=== PATIENT | female | born 1935 | race Caucasian/White ===

== ENCOUNTER 2017-11-21 15:44 | Emergency (ER) | payer OTHER, BC ==
--- OUTSIDE RECORDS SUMMARY | 2017-11-21 15:46 | XMS REPORT | Clinical Summary ---
:1935 Author Organization [facility] Address [address] [place] [address] Care Team Providers Name Role Phone Asked, No Pcp Primary Care Provider Unavailable Allergies No Known Allergies Current Medications Prescription Sig. Disp. Refills Start Date End Date Status aspirin (ECOTRIN) 81 MG Take 81 mg by Active enteric coated tablet mouth daily. atenolol (TENORMIN) 25 Take 25 mg by Active MG tablet mouth daily. atorvastatin (LIPITOR) Take 10 mg by Active 10 MG tablet mouth daily. ezetimibe (ZETIA) 10 mg Take 10 mg by Active tablet mouth daily. hydrochlorothiazide Take 25 mg by Active (HYDRODIURIL) 25 MG mouth daily. tablet roflumilast (DALIRESP) Take 500 mcg by Active 500 mcg tablet mouth daily. levothyroxine Take 75 mcg by Active (SYNTHROID, LEVOTHROID) mouth every 75 MCG tablet morning. losartan (COZAAR) 100 MG Take 100 mg by Active tablet mouth daily. magnesium oxide (MAG-OX) Take 400 mg by Active 400 mg tablet mouth 2 (two) times a day. ipratropium (ATROVENT) Take 500 mcg by Active 0.02 % nebulizer nebulization 2 solution (two) times a day. 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) 04/2015 Anemia of chronic disease 09/11/2015 Viral pneumonia 09/11/2015 COPD exacerbation (HCC) 07/25/2015 Bronchitis 07/25/2015 Social History Tobacco Use Types Packs/Day Years Used Date Former Smoker 0.5 40 Smokeless Tobacco: Never Used Comments: quit 30 years ago Alcohol Use Drinks/Week oz/Week Comments No Sex Assigned at Date Recorded Not on file Last Filed Vital Signs Not on file Plan of Treatment Health Maintenance Due Date Last Done Comments SHINGRIX VACCINE (#1) 1984 ZOSTER VACCINE 1994 PNEUMOCOCCAL POLYSACCHARIDE VACCINE AGE 65 AND OVER 04/28/1999 PNEUMOCOCCAL-13 04/28/1999 INFLUENZA VACCINE 09/08/2017 Results Not on fileafter 11/20/2016 Insurance Payer Benefit Plan / Group Subscriber ID Type Phone Address MEDICARE MEDICARE PART A AND B xxxxxxxxxx Medicare [facility] xxxxxxxxx HMO y [phone] [place] [id number]
[2017-11-21] MEDS ORDERED: MAGNE/ALUM HYDROXD 30 ML UCUP ONE (17:27)
[2017-11-21] MEDS ORDERED: LIDOCAINE VISCOUS 2% SOLN 15 ML UDC ONE (17:28)
[2017-11-21] MEDS ORDERED: FAMOTIDINE 20 MG/2 ML VIAL IV ONE (17:28)
[2017-11-21 17:37] LABS: Absolute Lymphocytes (CBC) 1.9 K/uL (0.7-4.9); Absolute Monocytes 0.7 K/uL (0.1-1.3); Absolute Neutrophil 6.5 K/uL (1.8-8.0); Basophils % 0.4 % (0-1.3); Eosinophils % 1.8 % (0-4.4); Hematocrit 30.4 % (36.0-45.0); MCH 29.9 pg (27.0-35.0); MPV 7.6 fL (7.6-11.3); Monocytes % 7.6 % (3.3-12.3); RBC Red Blood Cell Count 3.45 M/uL (3.86-4.86)
[2017-11-21 17:55] LABS: Albumin 3.2 g/dL (3.4-5.0); Bilirubin Direct 0.5 mg/dL (0-0.2); Bilirubin Total 0.9 mg/dL (0.2-1.0); Potassium 4.9 mmol/L (3.5-5.1); Protein, Total 7.1 g/dL (6.4-8.2)
--- NOTE | 2017-11-21 18:21 | RAD REPORT ---
EXAM DESCRIPTION: US - Abdomen Exam Limited - 11/21/2017 6:15 pm CLINICAL HISTORY: RUQ abd pain COMPARISON: <Comparisons> FINDINGS: The gallbladder demonstrates multiple gallstones. No pericholecystic fluid or gallbladder wall thickening. The common bile duct is mildly enlarged measuring 10 mm. The liver demonstrates no findings of intrahepatic biliary dilatation. IMPRESSION: Cholelithiasis. Prominent common bile duct measuring 10 mm. MRCP assessment may be of value.
[2017-11-21] MEDS ORDERED: METRONIDAZOLE 500mg IVPB 500 MG/100 ML BAG IV ONE (18:49)
[2017-11-21] MEDS ORDERED: NA CHLORIDE 0.9% 1,000 ML ONE (18:49)
[2017-11-21] MEDS ORDERED: CEFTRIAXONE/SWI 1gm 1 GM/10 ML SYR ONE (18:49)
--- NOTE | 2017-11-21 19:04 | ER ---
Nurse's Notes [facility] Name: Zohreh López Age: 82 yrs Sex: Female : 1935 Arrival Date: 11/21/2017 Time: 15:48 Bed 18 Private MD: Deejay Peter Diagnosis: Calculus of gallbladder and bile duct without cholecystitis Presentation: 11/21 15:53 Presenting complaint: Patient states: i feeling pressure type of pain on my chest for 2 hj weeks now and the pain moves to my shoulder blade; pain is 10/10; reports for productive cough, denies fever and chills; uses O2 at L 24/7 at home;. Transition of care: patient was not received from another setting of care. Onset of symptoms was November 21, 2017. Risk Assessment: Do you want to hurt yourself or someone else? Patient reports no desire to harm self or others. Initial Sepsis Screen: Does the patient meet any 2 criteria? No. Patient's initial sepsis screen is negative. Does the patient have a suspected source of infection? No. Patient's initial sepsis screen is negative. Care prior to arrival: None. 15:53 Method Of Arrival: Ambulatory 15:53 Acuity: KALEB 3 hj Triage Assessment: 16:00 General: Appears in no apparent distress. uncomfortable, Behavior is calm, cooperative, hj appropriate for age. Pain: Complains of pain in chest Pain radiates to back. Cardiovascular: Reports chest pain, Capillary refill < 3 seconds Patient's skin is warm and dry. Historical: - Allergies: 16:00 No Known Allergies; hj - Home Meds: 16:00 Zetia 10 mg Oral tab 1 tab once daily [Active]; ipratropium bromide 0.02 % inhalation hj soln 1.25 mL 3 times per day [Active]; atenolol 50 mg Oral tab 1 tab once daily [Active]; atorvastatin 40 mg oral tab 1 tab once daily [Active]; Daliresp 500 mcg oral tab 1 tab once daily [Active]; levothyroxine 75 mcg tab 1 tab once daily [Active]; magnesium oxide 400 mg Oral cap [Active]; Anoro Ellipta 62.5-25 mcg/actuation inhalation dsdv 1 puff once daily [Active]; latanoprost (bulk) 100 % miscellaneous oil [Active]; aspirin 81 mg Oral chew 1 tab once daily [Active]; oxybutynin chloride 10 mg Oral tr24 1 tab once daily [Active]; - PMHx: 16:00 COPD; hj - PSHx: 16:00 None; hj - Immunization history:: Adult Immunizations up to date. - Social history:: Smoking status: Patient/guardian denies using tobacco, Patient/guardian denies using alcohol, Patient/guardian denies using street drugs, The patient lives with family. - Ebola Screening: : Patient negative for fever greater than or equal to 101.5 degrees Fahrenheit, and additional compatible Ebola Virus Disease symptoms Patient denies exposure to infectious person Patient denies travel to an Ebola-affected area in the 21 days before illness onset. - Family history:: not pertinent. Screenin:00 Abuse screen: Denies threats or abuse. Denies injuries from another. Nutritional hj screening: No deficits noted. Tuberculosis screening: No symptoms or risk factors identified. Fall Risk None identified. Assessment: 16:01 Pain: Pain began 2 weeks ago;. hj 16:30 General: Appears in no apparent distress. comfortable, Behavior is calm, cooperative, aj appropriate for age. Pain: Complains of pain in epigastric area and right upper quadrant. Neuro: Level of Consciousness is awake, alert, obeys commands, Oriented to person, place, time, situation, Appropriate for age. Respiratory: Airway is patent Respiratory effort is even, unlabored, Respiratory pattern is regular, symmetrical. GI: Abdomen is non-distended, obese, Abdomen is tender to palpation in epigastric area Reports epigastric pain, nausea. Derm: Skin is intact, is healthy with good turgor, Skin is pink, warm \T\ dry. normal. 19:30 Reassessment: Patient appears in no apparent distress at this time. No changes from jd3 previously documented assessment. Patient and/or family updated on plan of care and expected duration. Pain level reassessed. Patient is alert, oriented x 3, equal unlabored respirations, skin warm/dry/pink. 20:28 Reassessment: Patient appears in no apparent distress at this time. No changes from jd3 previously documented assessment. Patient and/or family updated on plan of care and expected duration. Pain level reassessed. Patient is alert, oriented x 3, equal unlabored respirations, skin warm/dry/pink. report given to Mariposa BERRY at [facility]. 21:22 Reassessment: Patient appears in no apparent distress at this time. No changes from jd3 previously documented assessment. Patient and/or family updated on plan of care and expected duration. Pain level reassessed. Patient is alert, oriented x 3, equal unlabored respirations, skin warm/dry/pink. Vital Signs: 16:01 BP 131 / 46; Pulse 60; Resp 18; Temp 98.2(O); Pulse Ox 96% on 2 lpm NC; Weight 83.91 hj kg; Height 5 ft. 3 in. (160.02 cm); Pain 10/10; 16:30 BP 150 / 53; Pulse 86; Resp 17; Pulse Ox 98% on 2 lpm NC; aj 19:31 BP 143 / 61; Pulse 73; Resp 16 S; Pulse Ox 98% on R/A; jd3 20:34 BP 134 / 59; Pulse 66; Resp 16 S; Pulse Ox 98% on R/A; jd3 16:01 Body Mass Index 32.77 (83.91 kg, 160.02 cm) ED Course: 15:48 Patient arrived in ED. mr 15:50 Deejay Peter MD is Private Physician. mr 15:56 Triage completed. hj 16:00 Arm band placed on left wrist. hj 16:01 Patient has correct armband on for positive identification. Placed in gown. Bed in low hj position. Call light in reach. Side rails up X 1. Adult w/ patient. gambling monitor on. Pulse ox on. NIBP on. 16:01 Patient maintains SpO2 saturation greater than 95% on room air. hj 16:10 Carol Adames, KRISTI is Primary Nurse. aj 16:17 Nathaniel Olivarez MD is Attending Physician. ma2 16:50 Inserted saline lock: 20 gauge in right forearm, using aseptic technique. Blood aj collected. 18:02 EKG done, by ED staff, reviewed by Nathaniel Olivarez MD. mh5 18:15 US Abdomen Limited In Process Unspecified. EDMS 19:30 Primary Nurse role handed off by Carol Adames, KRISTI jd3 19:30 Christian Farrell RN is Primary Nurse. jd3 21:22 No provider procedures requiring assistance completed. Patient transferred, IV remains jd3 in place. Administered Medications: 17:25 Drug: Pepcid 20 mg Route: IVP; Site: right forearm; aj 19:07 Follow up: Response: No adverse reaction aj 17:25 Drug: GI Cocktail without - (Maalox Suspension 30 ml, Lidocaine Liquid 2 % 15 aj ml) Route: PO; 19:07 Follow up: Response: Pain is decreased aj 19: Drug: Flagyl 500 mg Volume: 100 ml; Route: IVPB; Rate: 200 ml/hr; Infused Over: 30 jd3 mins; Site: right antecubital; 20:35 Follow up: Response: No adverse reaction; IV Status: Completed infusion jd3 19:19 Drug: NS 0.9% 1000 ml Route: IV; Rate: 1 bolus; Site: right antecubital; jd3 20:35 Follow up: Response: No adverse reaction; IV Status: Completed infusion; IV Intake: jd3 1000ml 19:20 Drug: Rocephin 1 grams Route: IV; Rate: calculated rate; Site: right antecubital; jd3 20:35 Follow up: Response: No adverse reaction; IV Status: Completed infusion jd3 Intake: 20:35 IV: 1000ml; Total: 1000ml. jd3 Outcome: 19:03 ER care complete, transfer ordered by MD. flood2 21:22 Transferred by ground EMS to [facility], Transfer form completed. jd3 X-rays sent w/ patient. Note: Report given to [facility] 21:22 Condition: stable 21:22 Instructed on the need for transfer, Demonstrated understanding of instructions. 21:23 Patient left the ED. jd3 Signatures: Dispatcher [employer] EDMS Carol Adames, Robyn Oliveros RN, Henry, RN RN hj Martinez, Maria Christian oRy RN RN jd3 Alzahri, Mohammad, MD MD ma2 Corrections: (The following items were deleted from the chart) 16:05 16:01 Pulse 60bpm; Resp 18bpm; Pulse Ox 96% 2 lpm Nasal Cannula; Temp 98.2F Oral; 83.91 hj kg; Height 5 ft. 3 in.; BMI: 32.7; Pain 10/10; hj
--- NOTE | 2017-11-21 19:04 | EDPHYS ---
Physician Documentation [facility] Name: Zohreh López Age: 82 yrs Sex: Female : 1935 Arrival Date: 11/21/2017 Time: 15:48 Bed 18 Private MD: Deejay Peter ED Physician Nathaniel Olivarez HPI: 11/21 16:44 This 82 yrs old Female presents to ER via Ambulatory with complaints of Chest ma2 Pain, Shoulder Pain. 16:44 The patient or guardian reports chest pain that is located primarily in the epigastric ma2 area. Onset: suddenly, today, 3 hour(s) ago. The pain radiates to RUQ. Associated signs and symptoms: Pertinent negatives: abdominal pain, cough, diaphoresis, headache, lower extremity swelling, lightheadedness, shortness of breath, syncope. Duration: The patient or guardian reports multiple episodes, that have now resolved, the episodes last approximately 20 minute(s). Modifying factors: The symptoms are alleviated by the symptoms are aggravated by eating. Severity of pain: At its worst the pain was moderate in the emergency department the pain is unchanged. Historical: - Allergies: 16:00 No Known Allergies; hj - Home Meds: 16:00 Zetia 10 mg Oral tab 1 tab once daily [Active]; ipratropium bromide 0.02 % inhalation hj soln 1.25 mL 3 times per day [Active]; atenolol 50 mg Oral tab 1 tab once daily [Active]; atorvastatin 40 mg oral tab 1 tab once daily [Active]; Daliresp 500 mcg oral tab 1 tab once daily [Active]; levothyroxine 75 mcg tab 1 tab once daily [Active]; magnesium oxide 400 mg Oral cap [Active]; Anoro Ellipta 62.5-25 mcg/actuation inhalation dsdv 1 puff once daily [Active]; latanoprost (bulk) 100 % miscellaneous oil [Active]; aspirin 81 mg Oral chew 1 tab once daily [Active]; oxybutynin chloride 10 mg Oral tr24 1 tab once daily [Active]; - PMHx: 16:00 COPD; hj - PSHx: 16:00 None; hj - Immunization history:: Adult Immunizations up to date. - Social history:: Smoking status: Patient/guardian denies using tobacco, Patient/guardian denies using alcohol, Patient/guardian denies using street drugs, The patient lives with family. - Ebola Screening: : Patient negative for fever greater than or equal to 101.5 degrees Fahrenheit, and additional compatible Ebola Virus Disease symptoms Patient denies exposure to infectious person Patient denies travel to an Ebola-affected area in the 21 days before illness onset. - Family history:: not pertinent. ROS: 16:44 Constitutional: Negative for fever, chills, and weight loss, Respiratory: Negative for ma2 shortness of breath, cough, wheezing, and pleuritic chest pain. 16:44 Abdomen/GI: Positive for abdominal pain, Negative for nausea and vomiting, diarrhea, abdominal cramps, dysphagia, rectal bleeding, bowel incontinence. 16:44 All other systems are negative. Exam: 16:44 Constitutional: This is a well developed, well nourished patient who is awake, alert, ma2 and in no acute distress. Chest/axilla: Normal chest wall appearance and motion. Nontender with no deformity. No lesions are appreciated. Cardiovascular: Regular rate and rhythm with a normal S1 and S2. No gallops, murmurs, or rubs. Normal PMI, no JVD. No pulse deficits. Respiratory: Lungs have equal breath sounds bilaterally, clear to auscultation and percussion. No rales, rhonchi or wheezes noted. No increased work of breathing, no retractions or nasal flaring. Back: No spinal tenderness. No costovertebral tenderness. Full range of motion. MS/ Extremity: Pulses equal, no cyanosis. Neurovascular intact. Full, normal range of motion. Neuro: Awake and alert, GCS 15, oriented to person, place, time, and situation. Cranial nerves II-XII grossly intact. Motor strength 5/5 in all extremities. Sensory grossly intact. Cerebellar exam normal. Normal gait. 16:44 Abdomen/GI: Inspection: abdomen appears normal, Palpation: moderate abdominal tenderness, in the right upper quadrant, Liver: no appreciated palpable abnormalities. Vital Signs: 16:01 BP 131 / 46; Pulse 60; Resp 18; Temp 98.2(O); Pulse Ox 96% on 2 lpm NC; Weight 83.91 hj kg; Height 5 ft. 3 in. (160.02 cm); Pain 10/10; 16:30 BP 150 / 53; Pulse 86; Resp 17; Pulse Ox 98% on 2 lpm NC; aj 19:31 BP 143 / 61; Pulse 73; Resp 16 S; Pulse Ox 98% on R/A; jd3 20:34 BP 134 / 59; Pulse 66; Resp 16 S; Pulse Ox 98% on R/A; jd3 16:01 Body Mass Index 32.77 (83.91 kg, 160.02 cm) hj MDM: 16:18 Patient medically screened. ma2 16:44 Differential diagnosis: anxiety, chest wall pain, cholecystitis, Cholelithiasis ma2 costochondritis. 18:59 Data reviewed: vital signs, nurses notes, EMS record, radiologic studies, ultrasound. ma2 Counseling: I had a detailed discussion with the patient and/or guardian regarding: the historical points, exam findings, and any diagnostic results supporting the discharge/admit diagnosis, the presence of at least one elevated blood pressure reading (>120/80) during this emergency department visit, the need to transfer to another facility. ED course: discussed with Dr. Sánchez.. he recommend tranasfer given elevated LFT and CBD of 10 mm, no GI available today will initiate transfer . 11/21 16:44 Order name: Basic Metabolic Panel [facility] 11/21 16:44 Order name: CBC with Diff [facility] 11/21 16:44 Order name: Creatinine for Radiology; Complete Time: 17:59 ma2 11/21 16:44 Order name: Hepatic Function; Complete Time: 18:26 ma2 11/21 16:44 Order name: Lipase; Complete Time: 18:26 vt2 11/21 16:44 Order name: Basic Metabolic Panel; Complete Time: 18:26 EDMS 11/21 16:44 Order name: US Abdomen Limited; Complete Time: 18:26 vt2 11/21 16:44 Order name: CBC with Automated Diff; Complete Time: 17:59 EDMS 11/21 16:48 Order name: Troponin I; Complete Time: 18:26 ma2 11/21 17:22 Order name: Urine Dipstick--Ancillary (enter results) 11/21 16:44 Order name: IV Saline Lock; Complete Time: 17:39 ma2 11/21 16:44 Order name: Labs collected and sent; Complete Time: 17:39 ma2 11/21 16:48 Order name: EKG; Complete Time: 16:48 ma2 11/21 16:48 Order name: EKG - Nurse/Tech; Complete Time: 17:48 ma2 11/21 18:35 Order name: NPO; Complete Time: 19:20 ma2 Administered Medications: 17:25 Drug: Pepcid 20 mg Route: IVP; Site: right forearm; aj 19:07 Follow up: Response: No adverse reaction aj 17:25 Drug: GI Cocktail without - (Maalox Suspension 30 ml, Lidocaine Liquid 2 % 15 aj ml) Route: PO; 19:07 Follow up: Response: Pain is decreased aj 19:19 Drug: Flagyl 500 mg Volume: 100 ml; Route: IVPB; Rate: 200 ml/hr; Infused Over: 30 jd3 mins; Site: right antecubital; 20:35 Follow up: Response: No adverse reaction; IV Status: Completed infusion jd3 19:19 Drug: NS 0.9% 1000 ml Route: IV; Rate: 1 bolus; Site: right antecubital; jd3 20:35 Follow up: Response: No adverse reaction; IV Status: Completed infusion; IV Intake: jd3 1000ml 19:20 Drug: Rocephin 1 grams Route: IV; Rate: calculated rate; Site: right antecubital; jd3 20:35 Follow up: Response: No adverse reaction; IV Status: Completed infusion jd3 Disposition: 11/21/17 19:03 Transfer ordered to [facility]. Diagnosis is Calculus of gallbladder and bile duct without cholecystitis. - Reason for transfer: Higher level of care. - Accepting physician is . - Condition is Stable. - Problem is new. - Symptoms are unchanged. Signatures: Dispatcher [employer] Carol Ponce RN RN aj Joaquin, Henry, RN RN hj Davies, Jonathon, RN RN jd3 Alzahri, Mohammad, MD MD ma2 Corrections: (The following items were deleted from the chart) 19:04 19:03 11/21/2017 19:03 Transfer ordered to [facility]. Diagnosis is ma2 Calculus of gallbladder and bile duct without cholecystitis. Reason for transfer: Higher level of care. Accepting physician is GI. Condition is Stable. Problem is new. Symptoms are unchanged. ma2 21:23 19:04 11/21/2017 19:03 Transfer ordered to [facility]. Diagnosis is jd3 Calculus of gallbladder and bile duct without cholecystitis. Reason for transfer: Higher level of care. Accepting physician is . Condition is Stable. Problem is new. Symptoms are unchanged. ma2
[2017-11-21 22:09] LABS: Urine Blood NEGATIVE (NEG); Urine Glucose NEGATIVE (NEG); Urine Protein 2+ (NEG)
--- NOTE | 2017-11-22 10:05 | EKG ---
Test Date: 2017-11-21 Test Time: 17:46:25 Upset Operator: MANDI MEASUREMENT RESULTS: Intervals: Rate: 63 MT: 188 QRSD: 76 QT: 382 QTc: 390 Weed: P: 67 MT: 188 QRS: 64 T: 64 INTERPRETIVE STATEMENTS: Normal sinus rhythm Nonspecific T wave abnormality Abnormal ECG Compared to ECG 09/07/2015 10:27:08 No significant changes Electronically Signed On 11-22-17 10:03:50 CDT by Pradeep Che
[2017-11-23 14:08] VITALS: BP 134/59; TEMP 98.2; O2SAT 98
== END 2017-11-21 21:23 | disposition short-term general hospital (02) ==
LOC: ER 15:44
DX: K80.70 Calculus of gallbladder and bile duct without cholecystitis without obstruction (principal); J44.9 Chronic obstructive pulmonary disease, unspecified; Z79.82 Long term (current) use of aspirin
CPT/HCPCS: 36415; 76705; 80048; 80076; 81003; 83690; 84484; 85025; 93005; 96365; 96368; 96375; 99285; J0696; J7030

== ENCOUNTER 2018-01-06 09:48 | Inpatient (IN) | payer OTHER, BC ==
--- OUTSIDE RECORDS SUMMARY | 2018-01-06 09:52 | XMS REPORT | Clinical Summary ---
:1935 Author Organization [facility] Address [address] [place] [address] Care Team Providers Name Role Phone Asked, No Pcp Primary Care Provider Unavailable Allergies No Known Allergies Medications Medication Sig Dispensed Refills Start Date End Date Status aspirin (ECOTRIN) 81 MG Take 81 mg by 0 Active enteric coated tablet mouth daily. atenolol (TENORMIN) 25 Take 25 mg by 0 Active MG tablet mouth daily. atorvastatin (LIPITOR) Take 10 mg by 0 Active 10 MG tablet mouth daily. ezetimibe (ZETIA) 10 mg Take 10 mg by 0 Active tablet mouth daily. hydrochlorothiazide Take 25 mg by 0 Active (HYDRODIURIL) 25 MG mouth daily. tablet roflumilast (DALIRESP) Take 500 mcg by 0 Active 500 mcg tablet mouth daily. levothyroxine Take 75 mcg by 0 Active (SYNTHROID, LEVOTHROID) mouth every 75 MCG tablet morning. losartan (COZAAR) 100 MG Take 100 mg by 0 Active tablet mouth daily. magnesium oxide (MAG-OX) Take 400 mg by 0 Active 400 mg tablet mouth 2 (two) times a day. ipratropium (ATROVENT) Take 500 mcg by 0 Active 0.02 % nebulizer nebulization 2 solution (two) times a day. 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 Last Filed Vital Signs Not on file Plan of Treatment Health Maintenance Due Date Last Done Comments SHINGRIX VACCINE (1 of 2) 1984 ZOSTER VACCINE 1994 PNEUMOCOCCAL POLYSACCHARIDE VACCINE AGE 65 AND OVER 04/28/1999 PNEUMOCOCCAL-13 04/28/1999 INFLUENZA VACCINE 09/08/2017 Results Not on fileafter 01/05/2017 Insurance Payer Benefit Plan / Group Subscriber ID Type Phone Address MEDICARE MEDICARE PART A AND B xxxxxxxxxx Medicare [place], [place] [employer] xxxxxxxxx HMO (Home) [place] [address] Advance Directives Patient has advance care planning documents, and code status on file. For more information, please contact:[place] [address] Code Status Date Activated Date Inactivated Comments Full Code 09/11/2015 1:03 AM 09/15/2015 7:57 PM Code Status decision reached by: Patient
--- OUTSIDE RECORDS SUMMARY | 2018-01-06 09:52 | XMS REPORT | Clinical Summary ---
:[address] [facility] Address [address] [place] [address] Care Team Providers Name Role Phone Deejay Peter Primary Care Provider Allergies No Known Allergies Medications Medication Sig Dispensed Refills Start Date End Date Status ezetimibe (ZETIA) 10 Take 10 mg by 0 Active mg tablet mouth daily. ipratropium Take 500 mcg by 0 Active (ATROVENT) 0.02 % nebulization 2 nebulizer solution (two) times daily as needed for Wheezing. atenolol (TENORMIN) Take 50 mg by 0 Active 50 MG tablet mouth daily. atorvastatin Take 40 mg by 0 Active (LIPITOR) 40 MG mouth daily. tablet roflumilast Take 500 mcg by 0 Active (DALIRESP) 500 mcg mouth daily. Tab tablet levothyroxine Take 75 mcg by 0 Active (SYNTHROID, mouth Every LEVOTHROID) 75 MCG morning on an tablet empty stomach. magnesium oxide Take 400 mg by 0 Active (MAG-OX) 400 mg mouth 2 (two) tablet times daily. umeclidinium-vilante Inhale 62.5 mcg by 0 Active rol (ANORO ELLIPTA) mouth via inhaler 62.5-25 daily. mcg/actuation DsDv latanoprost Place 1 drop into 0 Active (XALATAN) 0.005 % both eyes nightly. ophthalmic solution aspirin 81 MG EC Take 81 mg by 0 Active tablet mouth daily. amLODIPine (NORVASC) Take 5 mg by mouth 0 Active 5 MG tablet daily. oxybutynin Take 10 mg by 0 Active (DITROPAN-XL) 10 MG mouth daily. 24 hr tablet polyethylene glycol Take 17 g by mouth 255 g 0 11/25/2017 Active (GLYCOLAX) 17 daily as needed gram/dose powder (constipation). HYDROcodone-acetamin Take 1 tablet by 30 tablet 0 11/25/2017 12/05/2017 ophen (NORCO 5-325) mouth every 4 5-325 mg per tablet (four) hours as needed for up to 10 days. 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 11/26/2017 Choledocholithiasis 11/25/2017 Chronic diastolic HF (heart failure) 11/24/2017 Calculus of gallbladder with biliary obstruction but without cholecystitis Calculus of gallbladder without cholecystitis 11/21/2017 COPD (chronic obstructive pulmonary disease) 11/21/2017 Essential hypertension 11/21/2017 Elevated transaminase level 11/21/2017 Epigastric pain 11/21/2017 Elevated liver function tests 11/21/2017 Encounters Date Type Specialty Care Team Description 11/24/2017 Anesthesia Event Hugh Rodarte MD 11/24/2017 Surgery Yumi Shah LAPAROSCOPY,NUVIA Dunlap MD TECTOMY 11/23/2017 Surgery Gastroenterology Juan Antonio, ERCP,PAPILLOTOMY Lyubov Rutledge MD 11/23/2017 Anesthesia Event Gastroenterology Yoshi Mccrary MD 11/21/2017 [place] [facility] Calculus of gallbladder with biliary obstruction but without cholecystitis (Primary Dx); - Encounter Medicine Madhu Simple chronic bronchitis (HCC); 11/25/2017 MD Katharina Elevated liver function tests; Chester Hernandez Epigastric pain; MD Michael Essential hypertension; Elevated transaminase level; Chronic diastolic heart failure (HCC); Choledocholithiasis; Other emphysema (HCC); 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 Last Filed Vital Signs Vital Sign Reading Time Taken Blood Pressure 141/65 11/25/2017 8:08 AM CDT Pulse 72 11/25/2017 8:08 AM CDT Temperature 36.6 C (97.8 F) 11/25/2017 8:08 AM CDT Respiratory Rate 17 11/25/2017 8:08 AM CDT Oxygen Saturation 94% 11/25/2017 8:08 AM CDT Inhaled Oxygen Concentration - - Weight - - Height - - Body Mass Index - - Plan of Treatment Not on file Procedures Procedure Name Priority Date/Time Associated Diagnosis Comments REPORT OF PROCEDURE - 11/26/2017 1:21 ENDOSCOPY SCAN PM CDT RHYTHM STRIP - SCAN 11/26/2017 1:21 PM CDT TRANSFUSION SERVICE 11/25/2017 5:41 REPORT - SCAN PM CDT CBC W/PLT COUNT & AUTO Routine 11/25/2017 5:14 Results for this DIFFERENTIAL AM CDT procedure are in the results section. PHOSPHORUS Routine 11/25/2017 5:14 Results for this AM CDT procedure are in the results section. MAGNESIUM Routine 11/25/2017 5:14 Results for this AM CDT procedure are in the results section. HEPATIC FUNCTION PANEL Routine 11/25/2017 5:14 Results for this AM CDT procedure are in the results section. CBC W/PLT COUNT & AUTO Routine 11/25/2017 5:14 Results for this DIFFERENTIAL AM CDT procedure are in the results section. BASIC METABOLIC PANEL Routine 11/25/2017 5:14 Results for this (7) AM CDT procedure are in the results section. TISSUE EXAM AP Routine 11/24/2017 5:55 Results for this PM CDT procedure are in the results section. ECHOCARDIOGRAM REPORT 11/24/2017 11:50 - SCAN AM CDT LAPAROSCOPY,CHOLECYSTE 11/24/2017 11:20 Calculus of CTOMY AM CDT gallbladder without cholecystitis without obstruction Case Notes 1.5 HRS CBC W/PLT COUNT & AUTO Routine 11/24/2017 6:19 AM Results for this DIFFERENTIAL CDT procedure are in the results section. TYPE AND SCREEN, Routine 11/24/2017 6:19 AM Results for this AUTOMATED CDT procedure are in the results section. CBC W/PLT COUNT & AUTO Routine 11/24/2017 6:19 AM Results for this DIFFERENTIAL CDT procedure are in the results section. PROTHROMBIN TIME/INR Routine 11/24/2017 6:19 AM Results for this CDT procedure are in the results section. HEPATIC FUNCTION PANEL Routine 11/24/2017 6:19 AM Results for this CDT procedure are in the results section. MAGNESIUM Routine 11/24/2017 6:19 AM Results for this CDT procedure are in the results section. BASIC METABOLIC PANEL Routine 11/24/2017 6:19 AM Results for this (7) CDT procedure are in the results section. 2D ECHO W/ DOPPLER Routine 11/23/2017 7:41 PM Results for this (CW/PW/COLOR) CDT procedure are in the results section. REPORT OF PROCEDURE - 11/23/2017 5:25 PM ENDOSCOPY URL CDT FL ERCP Routine 11/23/2017 5:07 PM Results for this CDT procedure are in the results section. ERCP,BALLOON SWEEPING 11/23/2017 4:00 PM Gall stones, CDT common bile duct Pancreatic cyst Special Needs EUS AND ERCP W/ FLUORO AND ANESLINEAR SCOPE ERCP,LITHOTRIPSY 11/23/2017 4:00 PM CDT Gall stones, common bile duct Pancreatic cyst Special Needs EUS AND ERCP W/ FLUORO AND ANESLINEAR SCOPE ERCP,VISUALIZATION 11/23/2017 4:00 PM Gall stones, common bile CHOLANGIOSCOPY CDT duct Pancreatic cyst Special Needs EUS AND ERCP W/ FLUORO AND ANESLINEAR SCOPE PROCEDURE W/ C-ARM 11/23/2017 4:00 PM CDT Gall stones, common bile duct Pancreatic cyst Special Needs EUS AND ERCP W/ FLUORO AND ANESLINEAR SCOPE ERCP,PAPILLOTOMY 11/23/2017 4:00 PM CDT Gall stones, common bile duct Pancreatic cyst Special Needs EUS AND ERCP W/ FLUORO AND ANESLINEAR SCOPE CBC W/PLT COUNT & AUTO Routine 11/23/2017 4:56 AM CDT Results for this DIFFERENTIAL procedure are in the results section. APTT Routine 11/23/2017 4:56 AM CDT CBC W/PLT COUNT & AUTO Routine 11/23/2017 4:56 AM CDT Results for this DIFFERENTIAL procedure are in the results section. PROTHROMBIN TIME/INR Routine 11/23/2017 4:56 AM CDT HEPATIC FUNCTION PANEL Routine 11/23/2017 4:56 AM CDT MAGNESIUM Routine 11/23/2017 4:56 AM CDT BASIC METABOLIC PANEL (7) Routine 11/23/2017 4:56 AM CDT XR CHEST 2 VIEWS Routine 11/22/2017 9:25 AM CDT MR ABDOMEN WO CONTRAST MRCP STAT 11/22/2017 8:35 AM CDT CBC W/PLT COUNT & AUTO Routine 11/22/2017 4:31 AM CDT Results for this DIFFERENTIAL procedure are in the results section. HEPATITIS PANEL, ACUTE Routine 11/22/2017 4:31 AM CDT CBC W/PLT COUNT & AUTO Routine 11/22/2017 4:31 AM CDT Results for this DIFFERENTIAL procedure are in the results section. PROTHROMBIN TIME/INR Routine 11/22/2017 4:31 AM CDT HEPATIC FUNCTION PANEL Routine 11/22/2017 4:31 AM CDT MAGNESIUM Routine 11/22/2017 4:31 AM CDT BASIC METABOLIC PANEL (7) Routine 11/22/2017 4:31 AM CDT BLOOD CULTURE Routine 11/22/2017 4:30 AM CDT after 01/05/2017 Results EKG-SCANNED (11/26/2017 1:21 PM CDT) Narrative Performed At RHYTHM STRIP - SCAN (11/26/2017 1:21 PM CDT) Narrative Performed At TRANSFUSION SERVICE REPORT - SCAN (11/25/2017 5:41 PM CDT) Narrative Performed At CBC with platelet count + automated diff (11/25/2017 5:14 AM CDT)Only the most recent of4 resultswithin the time period is included. WBC 11.5 (H) 3.5 - 10.5 K/L [facility] RBC 3.23 (L) 3.93 - 5.22 M/L [facility] Hemoglobin 9.4 (L) 11.2 - 15.7 GM/DL [facility] Hematocrit 31.5 (L) 34.1 - 44.9 % [facility] MCV 97.5 (H) 79.4 - 94.[address] [facility] MCH 29.1 25.6 - 32.[address] [facility] MCHC 29.8 (L) 32.2 - 35.5 GM/DL [facility] RDW 13.3 11.7 - 14.4 % [facility] Platelets 208 150 - 450 K/CU MM [facility] MPV 9.4 9.4 - 12.[address] [facility] nRBC 0 0 - 0 /[address] [facility] % Neutros 88 % [facility] % Lymphs 8 % [facility] % Monos 3 % [facility] % Eos 0 % [facility] % Baso 0 % [facility] # Neutros 10.06 (H) 1.56 - 6.13 K/L [facility] # Lymphs 0.92 (L) 1.18 - 3.74 K/L [facility] # Monos 0.32 0.24 - 0.36 K/L [facility] # Eos 0.00 (L) 0.04 - 0.36 K/L [facility] # Baso 0.02 0.01 - 0.08 K/L [facility] Immature 1 0 - 1 % [facility] Granulocytes-[facility] Specimen Blood - Arm, Right Performing Organization Address City/State/Zipcode Phone Number [facility] [address] [place] [address] CENTER Phosphorus (11/25/2017 5:14 AM CDT) Phosphorus 4.1 2.3 - 4.7 mg/dL [facility] Specimen Blood - Arm, Right Performing Organization Address [facility] Phone Number [address] [address] [phone] [place] Magnesium (11/25/2017 5:14 AM CDT)Only the most recent of4 resultswithin the time period is included. Magnesium 2.1 1.6 - 2.6 mg/dL [facility] Specimen Blood - Arm, Right Performing Organization Address [facility] Phone Number [address] [address] [place] Hepatic function panel (11/25/2017 5:14 AM CDT)Only the most recent of4 resultswithin the time period is included. Protein, Total 6.3 6.0 - 8.3 gm/dL [facility] Albumin 3.4 (L) 3.5 - 5.0 g/dL [facility] Total Bilirubin 0.4 0.2 - 1.2 mg/dL [facility] Bilirubin, Direct 0.2 0.1 - 0.5 mg/dL [facility] Alkaline Phosphatase 230 (H) 40 - 150 U/L [facility] AST 84 (H) 5 - 34 U/L [facility] ALT 216 (H) 6 - 55 U/L [facility] Specimen Blood - Arm, Right Performing Organization Address [facility] Phone Number [address] [address] [place] Basic Metabolic Panel (11/25/2017 5:14 AM CDT)Only the most recent of4 resultswithin the time period is included. Sodium 139 136 - 145 meq/L [facility] Potassium 5.6 (H) 3.5 - 5.1 meq/L [facility] Chloride 107 98 - 107 meq/L [facility] CO2 27 22 - 29 meq/L [facility] BUN 17 7 - 21 mg/dL [facility] Creatinine 1.10 0.57 - 1.25 mg/dL [facility] Glucose 125 (H) 70 - 105 mg/dL [facility] Calcium 10.1 8.4 - 10.2 mg/dL [facility] EGFR 47Comment: ESTIMATED GFR IS mL/min/1.73 sq m [facility] NOT ACCURATE CREATININE [facility] CENTER CLEARANCE IN PREDICTING GLOMERULAR FILTRATION RATE. ESTIMATED GFR IS NOT APPLICABLE FOR DIALYSIS PATIENTS. Specimen Blood - Arm, Right Performing Organization Address City/State/Zipcode Phone Number [facility] [address] [place] [address] CENTER Tissue Exam (11/24/2017 5:55 PM CDT) Case Report Surgical Pathology Report Case: [id number] [facility] Authorizing Provider:Yumi Shah MD Collected: 11/24/2017 1755 [facility] Ordering Location: [facility] PERIOPERATIVE Received: 11/25/2017 0841 SERVICES Pathologist: Robyn Patino MD Specimen:Gallbladder DIAGNOSIS GALLBLADDER, CHOLECYSTECTOMY: [facility] - CHRONIC CHOLECYSTITIS WITH CHOLELITHIASIS [facility] MO/pl Signing Pathologist Direct Phone Line: [phone] CPT Code(s) [address] [facility] CLINICAL HISTORY Calculus of gallbladder [facility] without cholecystitis [facility] without obstruction SPECIMEN SOURCE Gallbladder [facility] GROSS DESCRIPTION Received fresh labeled "gallbladder" is a 9.0 x 3.5 x 1.0 cm intact, distended gallbladder. The serosal surface is purple-ramos and exhibits cautery artifact on the hepatic surface. The lumen contains yel [facility] low-green to red mucoid bile and a 1.1 cm in greatest dimension yellow-gold to black irregular calculus. The mucosal surface is yellow-green to red, velvety , trabeculated and glistening. The wall measures up to 0.3 cm in maximum thickness. [facility] Section code: A1, parallel cystic duct resection margin; A2, ambulatory services representative section of gallbladder. DB/pl MICROSCOPIC DESCRIPTION The gallbladder shows [facility] chronic cholecystitis. Some [facility] of the mucosa is autolyzed, but there are still discernible Rokitansky-Aschoff sinuses. Some of the mucosa shows duplicated bland glandular elements, also autolyzed, possibly representing focal adenomyosis. Some bile stained elements are present within Rokitansky-Aschoff sinuses as well. There are also some cystic changes. Atypia is not noted. Specimen Tissue - Gallbladder Performing Organization Address [facility] Phone Number [address] [address] CENTER ECHOCARDIOGRAM REPORT - SCAN (11/24/2017 11:50 AM CDT) Narrative Performed At Type and screen, automated (11/24/2017 6:19 AM CDT) ABO/RH AUTOMATED (BEAKER) A POSITIVE [facility] Ab Scrn NEGATIVE [facility] Specimen Blood Performing Organization Address [facility] Cent[facility] Phone Number [address] [address] Prothrombin time/INR (11/24/2017 6:19 AM CDT)Only the most recent of3 resultswithin the time period is included. Protime 14.2 11.7 - 14.[address] [facility] INR 1.1 <=5.9 [facility] Specimen Blood Narrative Performed At [facility] RECOMMENDED COUMADIN/WARFARIN INR THERAPY RANGES STANDARD DOSE: 2.0 - 3.0 Includes: PROPHYLAXIS for venous thrombosis, systemic embolization; TREATMENT for venous thrombosis and/or pulmonary embolus. HIGH RISK: Target INR is 2.5-3.5 for patients with mechanical heart valves. Performing Organization Address [facility]/State/Zipcode Phone Number [phone] [place] [address] CENTER 2D Echo W/Doppler(CW/PW/Color) (11/23/2017 7:41 PM CDT) Ejection Fraction [facility] ECHO [facility] Narrative Performed At Transthoracic Echocardiography Report (TTE) [facility] ECHO [facility] Demographics Patient NameMADHU SOOD Date of Study11/23/2017 [place] Female Visit [id number] Unknown Room [id number] Number Date of 1935Referring Kerri Martinez MD Age 82 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 Clinical History HGB 9.2 HCT 29.8 % COPD, HX OF SMOKING, HTN Contrast Medium: Definity. Amount - 3 ml Height: 66 inches Weight: 92.53 kg (204 lbs) BSA: 2.02 m^2 BMI: 32.93 kg/m^2 HR: 66 bpm BP: 120/57 mmHg Summary The left ventricle is chamber size (by PSLAX dimension) is normal (female - LVIDd 3.8-5.2cm) . Normal LV wall thickness. All of the LV segments contract normally . Global LV systolic function normal . Estimated LVEF by qualitative assessment is normal (>60%) . LV endocardium is adequately visualized with IV ultrasound enhancing agent. Grade 1 diastolic dysfunction (impaired relaxation and low-normal LA pressure). Global RV systolic function is normal . RV chamber size is borderline enlarged . Estimated peak systolic PA pressure is 30-35 mmHg . The estimated RA pressure by IVC dynamics 5-10mmHg . No significant pericardial effusion is visualized. An echo lucent space is noted consistent with prominent pericardial fat pad. Previous Study No prior exam available for comparison. Signature Findings Technical Quality: Technically difficult exam. Left Ventricle The left ventricle is chamber size (by PSLAX di mension) is normal (female - LVIDd 3.8-5.2cm) . No rmal LV wall thickness. All of the LV segments co ntract normally . Global LV systolic function no rmal . Estimated LVEF by qualitative assessment is normal (>60%) . LV endocardium is adequately vi sualized with IV ultrasound enhancing agent. Gr timothy 1 diastolic dysfunction (impaired relaxation an d low-normal LA pressure). Left AtriumLA size is mildly enlarged . Right VentricleGlobal RV systolic function is normal . RV chamber size is borderline enlarged . Right Atrium RA size is probably normal based on available vi ews. Aortic Valve AoV is partially visualized. Ao V appears to have mild cusp calcification. Th ere is no aortic stenosis. Th ere is no aortic regurgitation. Mitral Valve Mild MV leaflet thickening. Tricuspid ValveA trace of tricuspid regurgitation. Es timated peak systolic PA pressure is 30-35 mmHg . Pulmonic Valve PV is not well visualized. AortaAortic root size (SInus of Valsalva diameter) is no rmal . PericardiumNo significant pericardial effusion is visualized. An echo lucent space is noted consistent with pr ominent pericardial fat pad. IVC/SVC/PA/PV/PleuralThe estimated RA pressure by IVC dynamics 5-10mmHg . Chambers/Structures Left Atrium LA Volume: 71.46 ml LA Area: 22.02 cm^2 LA Vol. Index: 35 ml/m^2 Left Ventricle LVIDd: 4.58 cm LV Septum Diastolic: 1 cm LV PW Diastolic: 0.91 cm LVOT Diameter: 2.18 cm Right Ventricle TAPSE: 2.18 cm Aorta Ao Root S of Brenda.: 2.98 cm Doppler/Quantitative Measurements Mitral Valve MV Peak E-Wave: 0.87 m/sMV Peak A-Wave: 1.51 m/s E/A Ratio: 0.58 Peak Gradient: 3.05 mmHg Deceleration Time: 242.2 msec MV Danilo. Peak: Tissue Doppler E' Lateral Velocity: 0.06 m/s E/E': 14.09 Aortic Valve Peak Velocity: 1.54 m/sMean Velocity: 0.99 m/s Peak Gradient: 9.47 mmHg Mean Gradient: 4.54 mmHg AV Area (continuity): 2.54 cm^2 AV VTI: 37.54 cm AV DVI: 0.68 LVOT Peak Velocity: 1.16 m/s Peak Gradient: 5.36 mmHg Mean Velocity: 0.77 m/s Mean Gradient: 2.77 mmHg LVOT Diameter: 2.18 cmLVOT VTI: 25.58 cm LVOT Area: 3.73 cm^2LVOT SV:95.43 ml LVOT CO: 6.3 l/minLVOT CI: 3.12 l/min/m^2 Tricuspid Valve TR Velocity: 2.66 m/s TR Gradient: 28.31 mmHg Contractility Score LV regional wall motion:(0-Non visualized 1-Normal 2-Hypokinesis 3-Akinesis 4-Dyskinesis 5-Aneurysm) Procedure Note Interface, External Ris In - 11/24/2017 11:11 AM CDT Transthoracic Echocardiography Report (TTE) Demographics Patient Name MADHU SOOD Date of Study 11/23/2017 CAYET[place]O Gender Female Visit Number [id number] Race Unknown Room Number [id number] Number Date of 1935 Referring Kerri Posadas Physician MD Marj 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 Clinical History HGB 9.2 HCT 29.8 % COPD, HX OF SMOKING, HTN Contrast Medium: Definity. Amount - 3 ml Height: 66 inches Weight: 92.53 kg (204 lbs) BSA: 2.02 m^2 BMI: 32.93 kg/m^2 HR: 66 bpm BP: 120/57 mmHg Summary The left ventricle is chamber size (by PSLAX dimension) is normal (female - LVIDd 3.8-5.2cm) . Normal LV wall thickness. All of the LV segments contract normally . Global LV systolic function normal . Estimated LVEF by qualitative assessment is normal (>60%) . LV endocardium is adequately visualized with IV ultrasound enhancing agent. Grade 1 diastolic dysfunction (impaired relaxation and low-normal LA pressure). Global RV systolic function is normal . RV chamber size is borderline enlarged . Estimated peak systolic PA pressure is 30-35 mmHg . The estimated RA pressure by IVC dynamics 5-10mmHg . No significant pericardial effusion is visualized. An echo lucent space is noted consistent with prominent pericardial fat pad. Previous Study No prior exam available for comparison. Signature Findings Technical Quality: Technically difficult exam. Left Ventricle The left ventricle is chamber size (by PSLAX dimension) is normal (female - LVIDd 3.8-5.2cm) . Normal LV wall thickness. All of the LV segments contract normally . Global LV systolic function normal . Estimated LVEF by qualitative assessment is normal (>60%) . LV endocardium is adequately visualized with IV ultrasound enhancing agent. Grade 1 diastolic dysfunction (impaired relaxation and low-normal LA pressure). Left Atrium LA size is mildly enlarged . Right Ventricle Global RV systolic function is normal . RV chamber size is borderline enlarged . Right Atrium RA size is probably normal based on available views. Aortic Valve AoV is partially visualized. AoV appears to have mild cusp calcification. There is no aortic stenosis. There is no aortic regurgitation. Mitral Valve Mild MV leaflet thickening. Tricuspid Valve A trace of tricuspid regurgitation. Estimated peak systolic PA pressure is 30-35 mmHg . Pulmonic Valve PV is not well visualized. Aorta Aortic root size (SInus of Valsalva diameter) is normal . Pericardium No significant pericardial effusion is visualized. An echo lucent space is noted consistent with prominent pericardial fat pad. IVC/SVC/PA/PV/Pleural The estimated RA pressure by IVC dynamics 5-10mmHg . Chambers/Structures Left Atrium LA Volume: 71.46 ml LA Area: 22.02 cm^2 LA Vol. Index: 35 ml/m^2 Left Ventricle LVIDd: 4.58 cm LV Septum Diastolic: 1 cm LV PW Diastolic: 0.91 cm LVOT Diameter: 2.18 cm Right Ventricle TAPSE: 2.18 cm Aorta Ao Root S of Brenda.: 2.98 cm Doppler/Quantitative Measurements Mitral Valve MV Peak E-Wave: 0.87 m/s MV Peak A-Wave: 1.51 m/s E/A Ratio: 0.58 Peak Gradient: 3.05 mmHg Deceleration Time: 242.2 msec MV Danilo. Peak: Tissue Doppler E' Lateral Velocity: 0.06 m/s E/E': 14.09 Aortic Valve Peak Velocity: 1.54 m/s Mean Velocity: 0.99 m/s Peak Gradient: 9.47 mmHg Mean Gradient: 4.54 mmHg AV Area (continuity): 2.54 cm^2 AV VTI: 37.54 cm AV DVI: 0.68 LVOT Peak Velocity: 1.16 m/s Peak Gradient: 5.36 mmHg Mean Velocity: 0.77 m/s Mean Gradient: 2.77 mmHg LVOT Diameter: 2.18 cm LVOT VTI: 25.58 cm LVOT Area: 3.73 cm^2 LVOT SV:95.43 ml LVOT CO: 6.3 l/min LVOT CI: 3.12 l/min/m^2 Tricuspid Valve TR Velocity: 2.66 m/s TR Gradient: 28.31 mmHg Contractility Score LV regional wall motion:(0-Non visualized 1-Normal 2-Hypokinesis 3-Akinesis 4-Dyskinesis 5-Aneurysm) Performing Organization Address City/State/Zipcode Phone Number [facility] REPORT OF PROCEDURE - ENDOSCOPY URL (11/23/2017 5:25 PM CDT) Narrative Performed At [place] ERCP (11/23/2017 5:07 PM CDT) Narrative Performed At FINAL REPORT GE RIS ERCP, 11/23/2017 Clinical History: Gallstones Impression: Intraoperative images are obtained. The radiologist is not present during the procedure. Fluoroscopy was not performed by the undersigned.Images are presented for interpretation at the completion of the procedure.Please refer to the procedure report for more details. A single image is submitted demonstrating presence of endoscope. Fluoroscopy time not submitted. Signed: Esther Gilbert MD Report Verified Date/Time:11/23/2017 18:31:29 Reading Location: [address] Consult Reading Room Procedure Note Interface, External Ris In - 11/23/2017 6:33 PM CDT FINAL REPORT ERCP, 11/23/2017 Clinical History: Gallstones Impression: Intraoperative images are obtained. The radiologist is not present during the procedure. Fluoroscopy was not performed by the undersigned. Images are presented for interpretation at the completion of the procedure. Please refer to the procedure report for more details. A single image is submitted demonstrating presence of endoscope. Fluoroscopy time not submitted. Signed: Esther Gilbert MD Report Verified Date/Time: 11/23/2017 18:31:29 Reading Location: [address] Consult Reading Room Performing Organization Address City/[facility]/Zipcode Phone Number GE RIS aPTT (11/23/2017 4:56 AM CDT) PTT 28.1 22.5 - 36.[address] [facility] Specimen Blood Performing Organization Address City/[facility]/Zipcode Phone Number [facility] [address] [place] [address] CENTER XR chest 2 views (11/22/2017 9:25 AM CDT) Narrative Performed At FINAL REPORT GE RIS CLINICAL HISTORY: rhonchi on exam TECHNIQUE: 2 views of the chest COMPARISON: None IMPRESSION: There are mildly prominent interstitial markings, but without lobar consolidation or pleural effusions. There is mild cardiomegaly. The bones are osteopenic. Signed: Pari Corral MD Report Verified Date/Time:11/22/2017 09:59:21 Reading Location: [facility] Radiology Reading Room Procedure Note Interface, External Ris In - 11/22/2017 10:01 AM CDT FINAL REPORT CLINICAL HISTORY: rhonchi on exam TECHNIQUE: 2 views of the chest COMPARISON: None IMPRESSION: There are mildly prominent interstitial markings, but without lobar consolidation or pleural effusions. There is mild cardiomegaly. The bones are osteopenic. Signed: Pari Corral MD Report Verified Date/Time: 11/22/2017 09:59:21 Reading Location: [facility] Radiology Reading Room Performing Organization Address City/State/Zipcode Phone Number [facility] MR abdomen without IV contrast MRCP (11/22/2017 8:35 AM CDT) Narrative Performed At FINAL REPORT [facility] MRCP, MRI of abdomen without contrast Clinical History: Cholelithiasis Technique: Multiplanar and multisequence MR images of the biliary system are obtained, with dedicated MRCP protocol and images. No intravenous contrast is administered. In addition, 3 dimensional reformatted images of the biliary system are obtained to evaluate the biliary anatomy. Comparison: No priors Discussion: This examination is not dedicated to evaluating masses or parenchymal abnormalities of the abdominal organs. Liver is not cirrhotic in morphology. No discrete liver lesion is identified on this noncontrast exam. There is mild degree of biliary ductal dilatation. CBD measures 1 cm. At least three stones are present in the distal CBD. Gallbladder is contracted, containing stones. There is also a cluster of small cysts at the gallbladder fundus, compatible with fundal adenomyomatosis. There is a 1 cm T2 bright lesion within the spleen, which is indeterminate. No pancreatic ductal dilatation. However, there are multiple cystic foci in the pancreas with apparent connection to the main duct, probably reflecting dilated sidebranches versus IPMN . No discrete solid component is identified on this noncontrast study. No peripancreatic edema or fluid. The adrenal glands appear normal. Multiple T2 bright foci are present in the kidneys, likely representing cysts. One in the interpolar left lobe contains fluid fluid level, likely reflecting presence of hemorrhagic or proteinaceous contents. Visualized bowel is unremarkable. No ascites, or adenopathy. Aorta is mildly aneurysmal, measuring 3.2 cm. Marrow signal appears heterogeneous. In the L3 vertebral body, there is a T1 hyperintense and T2 hyperintense lesion most likely a hemangioma. Impression: Cholelithiasis. At least three stones are present in the distal CBD, associated with mild degree of biliary ductal dilatation. Multiple cystic foci in the pancreas, which may reflect dilated sidebranches or IPMN (intraductal papillary mucinous neoplasm. Multiple renal cysts. Indeterminate 1 cm lesion in the spleen. Mildly aneurysmal abdominal aorta measuring 3.2 cm, recommend follow-up every three years. Signed: Mihai Monroy MD Report Verified Date/Time:11/22/2017 10:20:53 Reading Location: [address] Ortho Consult Reading Room Procedure Note Interface, External Ris In - 11/22/2017 10:23 AM CDT FINAL REPORT MRCP, MRI of abdomen without contrast Clinical History: Cholelithiasis Technique: Multiplanar and multisequence MR images of the biliary system are obtained, with dedicated MRCP protocol and images. No intravenous contrast is administered. In addition, 3 dimensional reformatted images of the biliary system are obtained to evaluate the biliary anatomy. Comparison: No priors Discussion: This examination is not dedicated to evaluating masses or parenchymal abnormalities of the abdominal organs. Liver is not cirrhotic in morphology. No discrete liver lesion is identified on this noncontrast exam. There is mild degree of biliary ductal dilatation. CBD measures 1 cm. At least three stones are present in the distal CBD. Gallbladder is contracted, containing stones. There is also a cluster of small cysts at the gallbladder fundus, compatible with fundal adenomyomatosis. There is a 1 cm T2 bright lesion within the spleen, which is indeterminate. No pancreatic ductal dilatation. However, there are multiple cystic foci in the pancreas with apparent connection to the main duct, probably reflecting dilated sidebranches versus IPMN . No discrete solid component is identified on this noncontrast study. No peripancreatic edema or fluid. The adrenal glands appear normal. Multiple T2 bright foci are present in the kidneys, likely representing cysts. One in the interpolar left lobe contains fluid fluid level, likely reflecting presence of hemorrhagic or proteinaceous contents. Visualized bowel is unremarkable. No ascites, or adenopathy. Aorta is mildly aneurysmal, measuring 3.2 cm. Marrow signal appears heterogeneous. In the L3 vertebral body, there is a T1 hyperintense and T2 hyperintense lesion most likely a hemangioma. Impression: Cholelithiasis. At least three stones are present in the distal CBD, associated with mild degree of biliary ductal dilatation. Multiple cystic foci in the pancreas, which may reflect dilated sidebranches or IPMN (intraductal papillary mucinous neoplasm. Multiple renal cysts. Indeterminate 1 cm lesion in the spleen. Mildly aneurysmal abdominal aorta measuring 3.2 cm, recommend follow-up every three years. Signed: Mihai Monroy MD Report Verified Date/Time: 11/22/2017 10:20:53 Reading Location: [address] Ortho Consult Reading Room Performing Organization Address [facility] Cent[facility] Phone Number RIS Hepatitis panel, acute (11/22/2017 4:31 AM CDT) Hep A IgM HEPATITIS A TEST NEGATIVE Nonreactive [facility] Hep B C IgM NON-REACTIVE Nonreactive [facility] Hepatitis C Ab NON-REACTIVE Nonreactive [facility] hepatitis B Surface Ag NON-REACTIVE Nonreactive [facility] Specimen Blood - Arm, Left Performing Organization Address City/[facility]/Zipcode Phone Number [address] [address] [phone] CENTER Blood culture #1 (11/22/2017 4:30 AM CDT) Result No growth in [address] [facility] Specimen Blood - Arm, Left Performing Organization Address [facility]/Zipcode Phone Number [place] [phone] [place] [address] [phone] CENTER after 01/05/2017 Insurance Payer Benefit Plan / Subscriber ID Type Phone Address Group MEDICARE MEDICARE A B xxxxxxxxxxx Medicare BLUE CROSS/BLUE BCBS INDEMNITY [place] xxxxxxxxxxxx PPO [phone] [address] [place] [address] ([place]) [place] [address] Advance Directives For more information, please contact:[address] [phone] Code Status Date Activated Date Inactivated Comments Full Code 11/21/2017 11:45 PM 11/25/2017 2:38 PM This code status was determined by: Patient
--- OUTSIDE RECORDS SUMMARY | 2018-01-06 09:53 | XMS REPORT ---
:1935 [facility] [place] [address] Care Team Providers Name Role Phone AMAIRANI MOSQUEDA Unavailable Unavailable Problems This patient has no known problems. Allergies, Adverse Reactions, Alerts This patient has no known allergies or adverse reactions. Medications This patient has no known medications. Results Test Description Test Time Test Comments Text Results Atomic Results Result Comments BLOOD CULTURE 2017-11-27 11:00:00 Test Item Value Reference Range Comments CULTURE (BEAKER) (test msui=9893) No growth in 5 days TISSUE [id number] 17:04:00Surgical Pathology Report Case: [id number] Authorizing Provider: Yumi Shah MD Collected: 11/24/2017 1755 Ordering Location: [facility] PERIOPERATIVE Received: 11/25/2017 0841 SERVICES Pathologist: Robyn Patino MD Specimen: Gallbladder GALLBLADDER, CHOLECYSTECTOMY: - CHRONIC CHOLECYSTITIS WITH CHOLELITHIASISMO/pl Signing Pathologist Direct PhoneLine: [phone] signed by Robyn Patino MD on 11/26 at 5:04 [id number] of gallbladder without cholecystitis without obstruction Gallbladder Received fresh labeled "gallbladder" is a 9.0 x 3.5 x 1.0 cm intact, distended gallbladder. The serosal surface is purple-ramos and exhibits cautery artifact on the hepatic surface. The lumen contains yellow- green to red mucoid bile and a 1.1 cm in greatest dimension yellow-gold to black irregular calculus. The mucosal surface isyellow-green to red, velvety, trabeculated and glistening. The wall measures up to 0.3 cm in maximumthickness. 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 DB/pl The gallbladder shows chronic cholecystitis. Some of the mucosa is autolyzed, but there are still discernible Rokitansky-Aschoff sinuses. Some of the mucosa shows duplicated bland glandular elements, also autolyzed, possibly representing focal adenomyosis. Some bile stained elements are present within Rokitansky-Aschoff sinuses as well. There are also some cystic changes. Atypia is not noted.[id number] 06:24:00 Test Item Value Reference Range Comments PHOSPHORUS (BEAKER) (test tifb=180) 4.1 mg/dL 2.3-4.7 [id number] 06:24:00 Test Item Value Reference Range Comments MAGNESIUM (BEAKER) (test xyph=853) 2.1 mg/dL 1.6-2.6 BASIC METABOLIC [id number] 06:24:00 Test Item Value Reference Range Comments SODIUM (BEAKER) (test 139 meq/L 136-145 pjke=399) POTASSIUM (BEAKER) (test 5.6 meq/L 3.5-5.1 aqoh=379) CHLORIDE (BEAKER) (test 107 meq/L 98-107 qpht=617) CO2 (BEAKER) (test 27 meq/L 22-29 zeyx=530) BLOOD UREA NITROGEN 17 mg/dL 7-21 (BEAKER) (test fpcp=191) CREATININE (BEAKER) (test 1.10 mg/dL 0.57-1.25 yfmk=487) GLUCOSE RANDOM (BEAKER) 125 mg/dL 70-105 (test qlvw=836) CALCIUM (BEAKER) (test 10.1 mg/dL 8.4-10.2 htqf=750) EGFR (BEAKER) (test 47 mL/min/1.73 sq m ESTIMATED GFR IS NOT bjsm=2414) ACCURATE CREATININE CLEARANCE IN PREDICTING GLOMERULAR FILTRATION RATE. ESTIMATED GFR IS NOT APPLICABLE FOR DIALYSIS PATIENTS. HEPATIC FUNCTION [id number] 06:24:00 Test Item Value Reference Range Comments TOTAL PROTEIN (BEAKER) (test tlme=121) 6.3 gm/dL 6.0-8.3 ALBUMIN (BEAKER) (test csxm=1066) 3.4 g/dL 3.5-5.0 BILIRUBIN TOTAL (BEAKER) (test zzro=064) 0.4 mg/dL 0.2-1.2 BILIRUBIN DIRECT (BEAKER) (test drpd=371) 0.2 mg/dL 0.1-0.5 ALKALINE PHOSPHATASE (BEAKER) (test yesn=753) 230 U/L 40-150 AST (SGOT) (BEAKER) (test wlzk=264) 84 U/L 5-34 ALT (SGPT) (BEAKER) (test qrjr=553) 216 U/L 6-55 CBC W/PLT COUNT & AUTO [id number] 05:44:00 Test Item Value Reference Range Comments WHITE BLOOD CELL COUNT (BEAKER) (test qbne=734) 11.5 K/ L 3.5-10.5 RED BLOOD CELL COUNT (BEAKER) (test xugf=745) 3.23 M/ L 3.93-5.22 HEMOGLOBIN (BEAKER) (test hyes=287) 9.4 GM/DL 11.2-15.7 HEMATOCRIT (BEAKER) (test vsuo=130) 31.5 % 34.1-44.9 MEAN CORPUSCULAR VOLUME (BEAKER) (test nkib=533) 97.5 fL 79.4-94.8 MEAN CORPUSCULAR HEMOGLOBIN (BEAKER) (test 29.1 pg 25.6-32.2 oqae=966) MEAN CORPUSCULAR HEMOGLOBIN CONC (BEAKER) (test 29.8 GM/DL 32.2-35.5 plvu=989) RED CELL DISTRIBUTION WIDTH (BEAKER) (test 13.3 % 11.7-14.4 jsef=279) PLATELET COUNT (BEAKER) (test zfse=784) 208 K/CU MM 150-450 MEAN PLATELET VOLUME (BEAKER) (test cwvs=722) 9.4 fL 9.4-12.3 NUCLEATED RED BLOOD CELLS (BEAKER) (test 0 /100 WBC 0-0 dxtn=366) NEUTROPHILS RELATIVE PERCENT (BEAKER) (test 88 % dhop=355) LYMPHOCYTES RELATIVE PERCENT (BEAKER) (test 8 % uxyv=816) MONOCYTES RELATIVE PERCENT (BEAKER) (test 3 % ahys=482) EOSINOPHILS RELATIVE PERCENT (BEAKER) (test 0 % hsot=158) BASOPHILS RELATIVE PERCENT (BEAKER) (test 0 % siiu=367) NEUTROPHILS ABSOLUTE COUNT (BEAKER) (test 10.06 K/ L 1.56-6.13 tlnd=793) LYMPHOCYTES ABSOLUTE COUNT (BEAKER) (test 0.92 K/ L 1.18-3.74 tqaz=658) MONOCYTES ABSOLUTE COUNT (BEAKER) (test 0.32 K/ L 0.24-0.36 aeyo=538) EOSINOPHILS ABSOLUTE COUNT (BEAKER) (test 0.00 K/ L 0.04-0.36 aims=865) BASOPHILS ABSOLUTE COUNT (BEAKER) (test 0.02 K/ L 0.01-0.08 inyj=834) IMMATURE GRANULOCYTES-RELATIVE PERCENT (BEAKER) 1 % 0-1 (test iomh=3419) [id number] 07:27:00 Test Item Value Reference Range Comments MAGNESIUM (BEAKER) (test rhqy=302) 2.0 mg/dL 1.6-2.6 BASIC METABOLIC [id number] 07:27:00 Test Item Value Reference Range Comments SODIUM (BEAKER) (test 138 meq/L 136-145 vavh=918) POTASSIUM (BEAKER) (test 5.5 meq/L 3.5-5.1 bkic=106) CHLORIDE (BEAKER) (test 105 meq/L 98-107 wibg=971) CO2 (BEAKER) (test 28 meq/L 22-29 akmm=856) BLOOD UREA NITROGEN 12 mg/dL 7-21 (BEAKER) (test dped=154) CREATININE (BEAKER) (test 0.99 mg/dL 0.57-1.25 pdlc=212) GLUCOSE RANDOM (BEAKER) 119 mg/dL 70-105 (test dcut=405) CALCIUM (BEAKER) (test 10.0 mg/dL 8.4-10.2 jmdd=738) EGFR (BEAKER) (test 54 mL/min/1.73 sq m ESTIMATED GFR IS NOT wati=8315) ACCURATE CREATININE CLEARANCE IN PREDICTING GLOMERULAR FILTRATION RATE. ESTIMATED GFR IS NOT APPLICABLE FOR DIALYSIS PATIENTS. HEPATIC FUNCTION [id number] 07:27:00 Test Item Value Reference Range Comments TOTAL PROTEIN (BEAKER) (test dyly=413) 6.4 gm/dL 6.0-8.3 ALBUMIN (BEAKER) (test kkyu=5228) 3.3 g/dL 3.5-5.0 BILIRUBIN TOTAL (BEAKER) (test oimu=031) 0.4 mg/dL 0.2-1.2 BILIRUBIN DIRECT (BEAKER) (test xnus=928) 0.2 mg/dL 0.1-0.5 ALKALINE PHOSPHATASE (BEAKER) (test lgaw=933) 261 U/L 40-150 AST (SGOT) (BEAKER) (test lgbq=206) 79 U/L 5-34 ALT (SGPT) (BEAKER) (test xekx=731) 267 U/L 6-55 PROTHROMBIN [id number] 07:20:00 Test Item Value Reference Range Comments PROTIME (BEAKER) (test ujla=184) 14.2 seconds 11.7-14.7 INR (BEAKER) (test ixmk=686) 1.1 <=5.9 RECOMMENDED COUMADIN/WARFARIN INR THERAPY RANGESSTANDARD DOSE: 2.0 - 3.0 Includes: PROPHYLAXIS forvenous thrombosis, systemic embolization; TREATMENT for venous thrombosis and/or pulmonary embolus.HIGH RISK: Target INR is 2.5-3.5 for patients with mechanical heart valves.CBC W/PLT COUNT & AUTO [id number] 07:09:00 Test Item Value Reference Range Comments WHITE BLOOD CELL COUNT (BEAKER) (test clgu=641) 6.7 K/ L 3.5-10.5 RED BLOOD CELL COUNT (BEAKER) (test tygp=613) 3.20 M/ L 3.93-5.22 HEMOGLOBIN (BEAKER) (test dxam=598) 9.2 GM/DL 11.2-15.7 HEMATOCRIT (BEAKER) (test tbvs=491) 30.4 % 34.1-44.9 MEAN CORPUSCULAR VOLUME (BEAKER) (test lzcs=379) 95.0 fL 79.4-94.8 MEAN CORPUSCULAR HEMOGLOBIN (BEAKER) (test 28.8 pg 25.6-32.2 clws=445) MEAN CORPUSCULAR HEMOGLOBIN CONC (BEAKER) (test 30.3 GM/DL 32.2-35.5 kzkt=093) RED CELL DISTRIBUTION WIDTH (BEAKER) (test 13.2 % 11.7-14.4 yttf=843) PLATELET COUNT (BEAKER) (test xaqd=803) 230 K/CU MM 150-450 MEAN PLATELET VOLUME (BEAKER) (test nmni=585) 9.5 fL 9.4-12.3 NUCLEATED RED BLOOD CELLS (BEAKER) (test 0 /100 WBC 0-0 psxb=034) NEUTROPHILS RELATIVE PERCENT (BEAKER) (test 83 % rtcq=186) LYMPHOCYTES RELATIVE PERCENT (BEAKER) (test 12 % rtpo=916) MONOCYTES RELATIVE PERCENT (BEAKER) (test 2 % xrpn=217) EOSINOPHILS RELATIVE PERCENT (BEAKER) (test 0 % qvhs=790) BASOPHILS RELATIVE PERCENT (BEAKER) (test 0 % vlto=351) NEUTROPHILS ABSOLUTE COUNT (BEAKER) (test 5.60 K/ L 1.56-6.13 hufg=509) LYMPHOCYTES ABSOLUTE COUNT (BEAKER) (test 0.78 K/ L 1.18-3.74 uprj=148) MONOCYTES ABSOLUTE COUNT (BEAKER) (test 0.14 K/ L 0.24-0.36 hwkr=631) EOSINOPHILS ABSOLUTE COUNT (BEAKER) (test 0.00 K/ L 0.04-0.36 abzh=833) BASOPHILS ABSOLUTE COUNT (BEAKER) (test 0.01 K/ L 0.01-0.08 kduu=827) IMMATURE GRANULOCYTES-RELATIVE PERCENT (BEAKER) 3 % 0-1 (test ozob=1335) HARSHAL, [id number] 18:31:00Reason for exam:->stonesFINAL REPORT ERCP, 11/23/2017 Clinical History: Gallstones Impression: Intraoperative images are obtained. The radiologist is not present during the procedure. Fluoroscopy was not performed by the undersigned. Images are presented for interpretation at the completion of the procedure. Please refer to the procedure report for more details. A single image is submitted demonstrating presence of endoscope. Fluoroscopy time not submitted. Signed: Esther Gilbert MDReport Verified Date/Time: 11/23/2017 18:31:29 Reading Location: [facility] B1 [id number] Consult Reading Room Electronicallysigned by: ESTHER GILBERT M.D. on 11/23/2017 06:31 [id number] 05:44:00 Test Item Value Reference Range Comments MAGNESIUM (BEAKER) (test cofc=926) 2.4 mg/dL 1.6-2.6 BASIC METABOLIC [id number] 05:44:00 Test Item Value Reference Range Comments SODIUM (BEAKER) (test 138 meq/L 136-145 difz=365) POTASSIUM (BEAKER) (test 4.6 meq/L 3.5-5.1 igvy=688) CHLORIDE (BEAKER) (test 104 meq/L 98-107 awxa=905) CO2 (BEAKER) (test 30 meq/L 22-29 ofpr=842) BLOOD UREA NITROGEN 14 mg/dL 7-21 (BEAKER) (test yjaz=410) CREATININE (BEAKER) (test 0.94 mg/dL 0.57-1.25 xrxs=303) GLUCOSE RANDOM (BEAKER) 97 mg/dL 70-105 (test kems=991) CALCIUM (BEAKER) (test 10.2 mg/dL 8.4-10.2 wkyr=162) EGFR (BEAKER) (test 57 mL/min/1.73 sq m ESTIMATED GFR IS NOT sier=9725) ACCURATE CREATININE CLEARANCE IN PREDICTING GLOMERULAR FILTRATION RATE. ESTIMATED GFR IS NOT APPLICABLE FOR DIALYSIS PATIENTS. HEPATIC FUNCTION [id number] 05:44:00 Test Item Value Reference Range Comments TOTAL PROTEIN (BEAKER) (test irnn=929) 6.6 gm/dL 6.0-8.3 ALBUMIN (BEAKER) (test eucs=5650) 3.5 g/dL 3.5-5.0 BILIRUBIN TOTAL (BEAKER) (test wwva=810) 0.6 mg/dL 0.2-1.2 BILIRUBIN DIRECT (BEAKER) (test objs=254) 0.3 mg/dL 0.1-0.5 ALKALINE PHOSPHATASE (BEAKER) (test prle=100) 315 U/L 40-150 AST (SGOT) (BEAKER) (test hmzl=992) 223 U/L 5-34 ALT (SGPT) (BEAKER) (test kjna=639) 429 U/L 6-55 [id number] 05:33:00 Test Item Value Reference Range Comments PARTIAL THROMBOPLASTIN TIME (BEAKER) (test 28.1 seconds 22.5-36.0 qmkc=955) PROTHROMBIN [id number] 05:32:00 Test Item Value Reference Range Comments PROTIME (BEAKER) (test fzhr=480) 13.5 seconds 11.7-14.7 INR (BEAKER) (test otjz=364) 1.0 <=5.9 RECOMMENDED COUMADIN/WARFARIN INR THERAPY RANGESSTANDARD DOSE: 2.0 - 3.0 Includes: PROPHYLAXIS forvenous thrombosis, systemic embolization; TREATMENT for venous thrombosis and/or pulmonary embolus.HIGH RISK: Target INR is 2.5-3.5 for patients with mechanical heart valves.CBC W/PLT COUNT & AUTO [id number] 05:13:00 Test Item Value Reference Range Comments WHITE BLOOD CELL COUNT (BEAKER) (test ynsz=923) 8.2 K/ L 3.5-10.5 RED BLOOD CELL COUNT (BEAKER) (test uldw=336) 3.15 M/ L 3.93-5.22 HEMOGLOBIN (BEAKER) (test tvkb=400) 9.2 GM/DL 11.2-15.7 HEMATOCRIT (BEAKER) (test sizu=915) 29.8 % 34.1-44.9 MEAN CORPUSCULAR VOLUME (BEAKER) (test emva=481) 94.6 fL 79.4-94.8 MEAN CORPUSCULAR HEMOGLOBIN (BEAKER) (test 29.2 pg 25.6-32.2 onpz=263) MEAN CORPUSCULAR HEMOGLOBIN CONC (BEAKER) (test 30.9 GM/DL 32.2-35.5 mbzc=549) RED CELL DISTRIBUTION WIDTH (BEAKER) (test 13.4 % 11.7-14.4 vnzm=388) PLATELET COUNT (BEAKER) (test vbeo=038) 213 K/CU MM 150-450 MEAN PLATELET VOLUME (BEAKER) (test tbtg=255) 9.4 fL 9.4-12.3 NUCLEATED RED BLOOD CELLS (BEAKER) (test 0 /100 WBC 0-0 kxui=052) NEUTROPHILS RELATIVE PERCENT (BEAKER) (test 65 % hpno=147) LYMPHOCYTES RELATIVE PERCENT (BEAKER) (test 26 % lruf=833) MONOCYTES RELATIVE PERCENT (BEAKER) (test 6 % pbqh=322) EOSINOPHILS RELATIVE PERCENT (BEAKER) (test 3 % thqr=239) BASOPHILS RELATIVE PERCENT (BEAKER) (test 0 % myto=339) NEUTROPHILS ABSOLUTE COUNT (BEAKER) (test 5.30 K/ L 1.56-6.13 xwao=656) LYMPHOCYTES ABSOLUTE COUNT (BEAKER) (test 2.11 K/ L 1.18-3.74 xrfc=345) MONOCYTES ABSOLUTE COUNT (BEAKER) (test 0.45 K/ L 0.24-0.36 umlz=523) EOSINOPHILS ABSOLUTE COUNT (BEAKER) (test 0.25 K/ L 0.04-0.36 pbsx=693) BASOPHILS ABSOLUTE COUNT (BEAKER) (test 0.03 K/ L 0.01-0.08 rmms=860) IMMATURE GRANULOCYTES-RELATIVE PERCENT (BEAKER) 1 % 0-1 (test awel=8987) MR, ABDOMEN, [id number] 10:20:00FINAL REPORT MRCP, MRI of abdomen without contrast Clinical History: Cholelithiasis Technique: Multiplanar and multisequence MR images of the biliary system are obtained, with dedicated MRCP protocol and images. No intravenous contrast is administered. In addition, 3 dimensional reformatted images of the biliary system are obtained to evaluate the biliary anatomy. Comparison:No priors Discussion: This examination is not dedicated [...] the spleen, which is indeterminate. No pancreatic ductaldilatation. However, there are multiple cystic foci in the pancreas with apparent connection to the main duct, probably reflecting dilated sidebranches versus IPMN . No discrete solid component is identified on this noncontrast study. No peripancreatic edema or fluid. The adrenal glands appear normal.Multiple T2 bright foci are present in the kidneys, likely representing cysts. One in the interpolarleft lobe contains fluid fluid level, likely reflecting presence of hemorrhagic or proteinaceous contents. Visualized bowel is unremarkable. No ascites, or adenopathy. Aorta is mildly aneurysmal, measuring 3.2 cm. Marrow signal appears heterogeneous. In the L3 vertebral body , there is a T1 hyperintense and T2 hyperintense lesion most likely a hemangioma. Impression: Cholelithiasis. At least three stones are present in the distal CBD, associated with mild degree of biliary ductal dilatation. Multiplecystic foci in the pancreas, which may reflect dilated sidebranches or IPMN (intraductal papillary mucinous neoplasm. Multiple renal cysts. Indeterminate 1 cm lesion in the spleen. Mildly aneurysmal abdominal aorta measuring 3.2 cm, recommend follow-up every three years. Signed: Mihai Monroy Verified Date/Time: 11/22/2017 10:20:53 Reading Location: [facility] B1 C013X Ortho Consult Reading RoomElectronically signed by: MIHAI MONROY M.D. on 10:20 AMRAD, CHEST, 2 [id number] 09:59:00Reason for exam:-> rhonchi on examFINAL REPORT CLINICAL HISTORY: rhonchi on exam TECHNIQUE: 2 views of the chest COMPARISON: None IMPRESSION: There are mildly prominent interstitial markings, but without lobar consolidation or pleural effusions. There is mild cardiomegaly. The bones are osteopenic. Signed : Pari Barkley Verified Date/Time: 11/22/2017 09:59:21 Reading Location: [facility] Radiology Reading Room HEPATITIS PANEL, [id number] 09: 45:00 Test Item Value Reference Range Comments HEPATITIS A IGM ANTIBODY (BEAKER) (test Nonreactive Nonreactive fjre=924) HEPATITIS B CORE IGM ANTIBODY (BEAKER) (test Nonreactive Nonreactive hmvj=907) HEPATITIS C ANTIBODY (BEAKER) (test goli=804) Nonreactive Nonreactive HEPATITIS B SURFACE ANTIGEN (2) (BEAKER) (test Nonreactive Nonreactive rjkb=8002) [id number] 05:06:00 Test Item Value Reference Range Comments MAGNESIUM (BEAKER) (test sygc=961) 2.6 mg/dL 1.6-2.6 BASIC METABOLIC [id number] 05:06:00 Test Item Value Reference Range Comments SODIUM (BEAKER) (test 138 meq/L 136-145 dwon=355) POTASSIUM (BEAKER) (test 4.9 meq/L 3.5-5.1 ohmx=379) CHLORIDE (BEAKER) (test 106 meq/L 98-107 oavz=234) CO2 (BEAKER) (test 27 meq/L 22-29 uqxo=880) BLOOD UREA NITROGEN 16 mg/dL 7-21 (BEAKER) (test xhay=094) CREATININE (BEAKER) (test 0.95 mg/dL 0.57-1.25 lxpl=936) GLUCOSE RANDOM (BEAKER) 93 mg/dL 70-105 (test jdun=508) CALCIUM (BEAKER) (test 10.2 mg/dL 8.4-10.2 ggvb=881) EGFR (BEAKER) (test 56 mL/min/1.73 sq m ESTIMATED GFR IS NOT chvz=5052) ACCURATE CREATININE CLEARANCE IN PREDICTING GLOMERULAR FILTRATION RATE. ESTIMATED GFR IS NOT APPLICABLE FOR DIALYSIS PATIENTS. HEPATIC FUNCTION [id number] 05:06:00 Test Item Value Reference Range Comments TOTAL PROTEIN (BEAKER) (test tmnr=138) 6.5 gm/dL 6.0-8.3 ALBUMIN (BEAKER) (test kuke=7437) 3.5 g/dL 3.5-5.0 BILIRUBIN TOTAL (BEAKER) (test iwpz=479) 0.8 mg/dL 0.2-1.2 BILIRUBIN DIRECT (BEAKER) (test xkbz=904) 0.5 mg/dL 0.1-0.5 ALKALINE PHOSPHATASE (BEAKER) (test kxyi=292) 305 U/L 40-150 AST (SGOT) (BEAKER) (test qrpd=433) 674 U/L 5-34 ALT (SGPT) (BEAKER) (test meuf=586) 686 U/L 6-55 PROTHROMBIN [id number] 04:53:00 Test Item Value Reference Range Comments PROTIME (BEAKER) (test ycpm=988) 14.4 seconds 11.7-14.7 INR (BEAKER) (test kuaa=229) 1.1 <=5.9 RECOMMENDED COUMADIN/WARFARIN INR THERAPY RANGESSTANDARD DOSE: 2.0 - 3.0 Includes: PROPHYLAXIS forvenous thrombosis, systemic embolization; TREATMENT for venous thrombosis and/or pulmonary embolus.HIGH RISK: Target INR is 2.5-3.5 for patients with mechanical heart valves.CBC W/PLT COUNT & AUTO [id number] 04:44:00 Test Item Value Reference Range Comments WHITE BLOOD CELL COUNT (BEAKER) (test zqga=822) 6.1 K/ L 3.5-10.5 RED BLOOD CELL COUNT (BEAKER) (test hjdb=801) 3.20 M/ L 3.93-5.22 HEMOGLOBIN (BEAKER) (test lhat=769) 9.1 GM/DL 11.2-15.7 HEMATOCRIT (BEAKER) (test qijx=916) 30.1 % 34.1-44.9 MEAN CORPUSCULAR VOLUME (BEAKER) (test kzdp=107) 94.1 fL 79.4-94.8 MEAN CORPUSCULAR HEMOGLOBIN (BEAKER) (test 28.4 pg 25.6-32.2 zmnd=566) MEAN CORPUSCULAR HEMOGLOBIN CONC (BEAKER) (test 30.2 GM/DL 32.2-35.5 gino=056) RED CELL DISTRIBUTION WIDTH (BEAKER) (test 13.2 % 11.7-14.4 jxlq=401) PLATELET COUNT (BEAKER) (test bvua=972) 204 K/CU MM 150-450 MEAN PLATELET VOLUME (BEAKER) (test rgvw=356) 9.2 fL 9.4-12.3 NUCLEATED RED BLOOD CELLS (BEAKER) (test 0 /100 WBC 0-0 wblt=922) NEUTROPHILS RELATIVE PERCENT (BEAKER) (test 55 % zhat=046) LYMPHOCYTES RELATIVE PERCENT (BEAKER) (test 33 % rmxt=049) MONOCYTES RELATIVE PERCENT (BEAKER) (test 8 % tzlh=012) EOSINOPHILS RELATIVE PERCENT (BEAKER) (test 3 % mmau=200) BASOPHILS RELATIVE PERCENT (BEAKER) (test 1 % lbrv=136) NEUTROPHILS ABSOLUTE COUNT (BEAKER) (test 3.38 K/ L 1.56-6.13 wjon=821) LYMPHOCYTES ABSOLUTE COUNT (BEAKER) (test 1.99 K/ L 1.18-3.74 igyp=607) MONOCYTES ABSOLUTE COUNT (BEAKER) (test 0.50 K/ L 0.24-0.36 otuu=086) EOSINOPHILS ABSOLUTE COUNT (BEAKER) (test 0.16 K/ L 0.04-0.36 imxd=330) BASOPHILS ABSOLUTE COUNT (BEAKER) (test 0.03 K/ L 0.01-0.08 dtrn=486) IMMATURE GRANULOCYTES-RELATIVE PERCENT (BEAKER) 1 % 0-1 (test brwj=2892)
[2018-01-06] MEDS ORDERED: ALBUTEROL 2.5 MG/3 ML NEB SOL ONE ×2 (10:41→14:57)
[2018-01-06] MEDS ORDERED: METHYLPREDNISOLONE 125 MG INJ ONE (10:41)
[2018-01-06] MEDS ORDERED: IPRATROPIUM BROM 0.5MG/2.5ML ONE ×2 (10:42→14:57)
[2018-01-06 10:48] LABS: Absolute Lymphocytes (CBC) 2.3 K/uL (0.7-4.9); Absolute Monocytes 0.5 K/uL (0.1-1.3); Absolute Neutrophil 6.4 K/uL (1.8-8.0); Basophils % 0.6 % (0-1.3); Eosinophils % 1.6 % (0-4.4); Hematocrit 36.2 % (36.0-45.0); Lymphocytes % 24.4 % (15.3-44.8); MCH 29.1 pg (27.0-35.0); MCV 86.6 fL (80-100); MPV 7.8 fL (7.6-11.3); Monocytes % 5.7 % (3.3-12.3); RBC Red Blood Cell Count 4.18 M/uL (3.86-4.86)
[2018-01-06 10:50] LABS: Protime INR 0.97
[2018-01-06 10:58] LABS: ALT/SGPT 19 U/L (12-78); AST/SGOT 15 U/L (15-37); Albumin 3.2 g/dL (3.4-5.0); Alkaline Phosphatase 139 U/L (45-117); BUN Blood Urea Nitrogen 18 mg/dL (7-18); Bicarbonate 34 mmol/L (21-32); Bilirubin Direct 0.1 mg/dL (0-0.2); Bilirubin Total 0.5 mg/dL (0.2-1.0); Glucose Level 117 mg/dL (74-106); Magnesium 3.1 mg/dL (1.8-2.4); NT PRO-BNP 717 pg/mL (<450); Potassium 4.7 mmol/L (3.5-5.1); Protein, Total 7.7 g/dL (6.4-8.2); Sodium Level 137 mmol/L (136-145); Troponin (Emerg Dept Use Only) < 0.02 ng/mL (0.0-0.045)
--- NOTE | 2018-01-06 11:20 | RAD REPORT ---
EXAM DESCRIPTION: RAD - Chest Single View - 01/06/2018 10:43 am CLINICAL HISTORY: Chest pain, shortness of breath COMPARISON: October 2016 TECHNIQUE: AP portable chest image was obtained 1032 hours . FINDINGS: Patient has a baseline prominent interstitial pattern. Mediastinum is distorted by rotatio n. Heart size is magnified by rotation. Interstitial pattern is increased slightly from comparison mo re so in the lateral right base. No acute bony abnormality seen. No acute aortic findings suspected. IMPRESSION: Increased interstitial pattern overall with focally more prominent increase in the later al right lung base. Early interstitial edema from failure or volume overload suspected. Pneumonia etiology is less likely .
[2018-01-06 12:26] LABS: Urine Blood NEGATIVE (NEG); Urine Glucose NEGATIVE (NEG); Urine Protein 3+ (NEG)
[2018-01-06 12:32] LABS: Urine Bacteria 20-50 /HPF (<20); Urine Culture Reflex Order NOT NEEDED; Urine RBC <5 /HPF (NONE SEEN)
--- NOTE | 2018-01-06 12:54 | EDPHYS ---
Physician Documentation [facility] Name: Zohreh López Age: 82 yrs Sex: Female : 1935 Arrival Date: 01/06/2018 Time: 09:49 Bed 8 Private MD: ED Physician Colten Yuan HPI: 01/06 10:05 This 82 yrs old Female presents to ER via Wheelchair with complaints of cp Breathing Difficulty. 10:05 The patient has shortness of breath at rest. Onset: The symptoms/episode began/occurred cp yesterday. Duration: The symptoms are continuous, and are steadily getting worse. Associated signs and symptoms: Pertinent negatives: chest pain, dizziness, fever. Severity of symptoms: in the emergency department the symptoms are unchanged. Historical: - Allergies: 10:00 No Known Allergies; bp - Home Meds: 10:00 Anoro Ellipta 62.5-25 mcg/actuation inhalation dsdv 1 puff once daily [Active]; aspirin bp 81 mg Oral chew 1 tab once daily [Active]; atenolol 50 mg Oral tab 1 tab once daily [Active]; atorvastatin 40 mg Oral tab 1 tab once daily [Active]; Daliresp 500 mcg Oral tab 1 tab once daily [Active]; ipratropium bromide 0.02 % inhalation soln 1.25 mL 3 times per day [Active]; latanoprost (bulk) 100 % miscellaneous oil [Active]; levothyroxine 75 mcg tab 1 tab once daily [Active]; magnesium oxide 400 mg Oral cap [Active]; oxybutynin chloride 10 mg Oral tr24 1 tab once daily [Active]; Zetia 10 mg Oral tab 1 tab once daily [Active]; - PMHx: 10:00 COPD; Hypertension; bp - Immunization history:: Adult Immunizations up to date. - Social history:: Smoking status: Patient/guardian denies using tobacco. - Ebola Screening: : Patient negative for fever greater than or equal to 101.5 degrees Fahrenheit, and additional compatible Ebola Virus Disease symptoms Patient denies exposure to infectious person Patient denies travel to an Ebola-affected area in the 21 days before illness onset No symptoms or risks identified at this time. ROS: 10:10 Constitutional: Negative for body aches, chills, fever, poor PO intake. cp 10:10 Eyes: Negative for injury, pain, redness, and discharge. cp 10:10 Cardiovascular: Negative for chest pain, edema, palpitations. 10:10 Respiratory: Positive for cough, shortness of breath. 10:10 Abdomen/GI: Negative for abdominal pain, nausea, vomiting, and diarrhea. 10:10 Skin: Negative for cellulitis, rash. 10:10 Neuro: Negative for altered mental status, headache, weakness. 10:10 All other systems are negative. Exam: 10:15 Constitutional: The patient appears in no acute distress, alert, awake, cp non-diaphoretic, well developed, well nourished. 10:15 Head/Face: Normocephalic, atraumatic. Eyes: Pupils equal round and reactive to light, cp extra-ocular motions intact. Lids and lashes normal. Conjunctiva and sclera are non-icteric and not injected. Cornea within normal limits. Periorbital areas with no swelling, redness, or edema. ENT: Nares patent. No nasal discharge, no septal abnormalities noted. Tympanic membranes are normal and external auditory canals are clear. Oropharynx with no redness, swelling, or masses, exudates, or evidence of obstruction, uvula midline. Mucous membranes moist. Chest/axilla: Normal chest wall appearance and motion. Nontender with no deformity. No lesions are appreciated. 10:15 Cardiovascular: Rate: normal, Rhythm: regular, Edema: is not appreciated, JVD: is not appreciated. 10:15 Respiratory: mild respiratory distress is noted, Respirations: labored breathing, that is mild, Breath sounds: decreased breath sounds, that are moderate, throughout. 10:15 Abdomen/GI: Inspection: abdomen appears normal, Bowel sounds: active, all quadrants, Palpation: abdomen is soft and non-tender, in all quadrants. 10:15 Back: pain, is absent, ROM is normal. 10:15 Skin: cellulitis, is not appreciated, no rash present. 10:15 Neuro: Orientation: to person, place \T\ time. Mentation: is normal, Cerebellar function: is grossly normal, Motor: is normal, Sensation: is normal. Vital Signs: 10:00 Pulse Ox 81% on 2 lpm NC; bp 10:03 BP 181 / 93; Pulse 63; Resp 24; Temp 98.4; Pulse Ox 100% ; Weight 86.18 kg; Height 5 bp ft. 3 in. (160.02 cm); 10:44 BP 141 / 55; Pulse 64; Resp 20; Pulse Ox 99% on 15% Nebulizer Mask; mh5 11:51 BP 144 / 41; Pulse 70; Resp 18; Pulse Ox 96% on 2 lpm NC; bp 13:01 BP 157 / 79; Pulse 70; Resp 16; Pulse Ox 97% ; bp 10:03 Body Mass Index 33.66 (86.18 kg, 160.02 cm) bp MDM: 09:56 Patient medically screened. cp 12:50 Data reviewed: vital signs, nurses notes, lab test result(s), radiologic studies, plain cp films. 12:50 Test interpretation: by ED physician or midlevel provider: plain radiologic studies. cp Counseling: I had a detailed discussion with the patient and/or guardian regarding: the historical points, exam findings, and any diagnostic results supporting the discharge/admit diagnosis, lab results, radiology results, the need for further work-up and treatment in the hospital. Physician consultation: Alfonso Fitzpatrick MD was contacted at 12:50, regarding admission, to the telemetry unit. patient's condition. 01/06 10:01 Order name: Basic Metabolic Panel bp 01/06 10:01 Order name: CBC with Diff bp 01/06 10:01 Order name: LFT's bp 01/06 10:01 Order name: Magnesium bp 01/06 10:01 Order name: NT PRO-BNP bp 01/06 10:01 Order name: PT-INR bp 01/06 10:01 Order name: Troponin (emerg Dept Use Only) bp 01/06 10:01 Order name: Lactate; Complete Time: 11:28 bp 01/06 10:02 Order name: Basic Metabolic Panel; Complete Time: 11:09 cp 01/06 11:09 Interpretation: Normal except: CO2 34; GLUC 117; GFR 43; CA 10.4. cp 01/06 10:02 Order name: CBC with Diff; Complete Time: 11: cp 01/06 11:47 Interpretation: Reviewed. cp 01/06 10:02 Order name: LFT's; Complete Time: 11:09 cp 01/06 11:09 Interpretation: Normal except: ALK 139; ALB 3.2; GLOB 4.5; A/G 0.7. cp 01/06 10:02 Order name: Magnesium; Complete Time: 11:09 cp 01/06 10:02 Order name: NT PRO-BNP; Complete Time: 11:09 cp 01/06 10:02 Order name: PT-INR; Complete Time: 11: cp 01/06 10:02 Order name: Troponin (emerg Dept Use Only); Complete Time: 11:09 cp 01/06 10:03 Order name: Blood Culture Adult (2) 01/06 10:03 Order name: Procalcitonin; Complete Time: 11: cp 01/06 10:03 Order name: Lactate cp 01/06 10:03 Order name: Urine Microscopic Only 01/06 12:17 Order name: Urine Dipstick--Ancillary (enter results) 01/06 13:47 Order name: Basic Metabolic Panel EDAK 01/06 13:47 Order name: Basic Metabolic Panel [facility] 01/06 13:47 Order name: CBC with Automated Diff EDAK 01/06 13:47 Order name: CBC with Automated Diff EDAK 01/06 13:47 Order name: Lipid Profile [facility] 01/06 13:47 Order name: Lipid Profile [facility] 01/06 13:47 Order name: Magnesium EDAK 01/06 13:47 Order name: Magnesium EDAK 01/06 13:47 Order name: Troponin I EDAK 01/06 13:47 Order name: Troponin I [facility] 01/06 10:01 Order name: XRAY Chest (1 view); Complete Time: 11:28 bp 01/06 10:01 Order name: EKG; Complete Time: 10: bp 01/06 10:01 Order name: Cardiac monitoring; Complete Time: 10: bp 01/06 10:01 Order name: EKG - Nurse/Tech; Complete Time: 10:02 bp 01/06 10:01 Order name: IV Saline Lock; Complete Time: 10:02 bp 01/06 10:01 Order name: Labs collected and sent; Complete Time: 10:02 bp 01/06 10:01 Order name: O2 Per Protocol; Complete Time: 10:02 bp 01/06 10:01 Order name: O2 Sat Monitoring; Complete Time: 10:02 bp 01/06 10:02 Order name: Cardiac monitoring; Complete Time: 10:39 cp 01/06 10:02 Order name: EKG - Nurse/Tech; Complete Time: 10:39 cp 01/06 10:02 Order name: IV Saline Lock; Complete Time: 10:39 cp 01/06 10:03 Order name: Labs collected and sent; Complete Time: 10:39 cp 01/06 10:03 Order name: O2 Per Protocol; Complete Time: 10:40 cp 01/06 10:03 Order name: O2 Sat Monitoring; Complete Time: 10:39 cp 01/06 10:03 Order name: Urine Dipstick-Ancillary (obtain specimen); Complete Time: 12:35 cp 01/06 13:47 Order name: Echo with Doppler EDMS 01/06 13:47 Order name: Troponin I EDAK 01/06 13:48 Order name: Respiratory Therapy Consult EDMS Administered Medications: 10:15 Drug: Albuterol - atroVENT (3:1) (2.5 mg - 0.5 mg) 3 ml Route: Nebulizer; bp 11:18 Follow up: Response: Marked relief of symptoms bp 10:15 Drug: SOLU-Medrol 125 mg Route: IVP; Site: right forearm; bp 11:17 Follow up: Response: Marked relief of symptoms bp Disposition: 01/06/18 12:53 Hospitalization ordered by Alfonso Fitzpatrick for Inpatient Admission. Preliminary diagnosis are Chronic obstructive pulmonary disease with (acute) exacerbation, Hypoxemia. - Bed requested for Telemetry/MedSurg (observation). - Status is Inpatient Admission. bp - Condition is Fair. - Problem is an acute exacerbation. - Symptoms have improved. UTI on Admission? No Addendum: 01/09/2018 09:04 Co-signature as Attending Physician, Colten Yuan MD I agree with the assessment and k dr plan of care. Signatures: Dispatcher [employer] [facility] Colten Yuan MD MD [facility] Samuel Pop PA PA cp Branden Méndez, RN RN bp Rosalba Montero Corrections: (The following items were deleted from the chart) 01/06 10:35 10:04 Chest Single View+RAD.RAD.BRZ ordered. [facility] EDAK 11:09 11:09 Normal except: CO2 34; GLUC 117; GFR 43. cp cp 12:54 12:53 Hospitalization Ordered by Alfonso Fitzpatrick MD for Observation. Preliminary diagnosis cp is Chronic obstructive pulmonary disease with (acute) exacerbation. Bed requested for Telemetry/MedSurg (observation). Status is Observation. Condition is Fair. Problem is an acute exacerbation. Symptoms have improved. UTI on Admission? No. cp 13:47 12:54 01/06/2018 12:53 Hospitalization Ordered by Alfonso Fitzpatrick MD for Observation. cp Preliminary diagnosis is Chronic obstructive pulmonary disease with (acute) exacerbation; Hypoxemia. Bed requested for Telemetry/MedSurg (observation). Status is Observation. Condition is Fair. Problem is an acute exacerbation. Symptoms have improved. UTI on Admission? No. cp 14:41 13:47 01/06/2018 12:53 Hospitalization Ordered by Alfonso Fitzpatrick MD for Inpatient eb Admission. Preliminary diagnosis is Chronic obstructive pulmonary disease with (acute) exacerbation; Hypoxemia. Bed requested for Telemetry/MedSurg (observation). Status is Inpatient Admission. Condition is Fair. Problem is an acute exacerbation. Symptoms have improved. UTI on Admission? No. cp 16:08 14:41 01/06/2018 12:53 Hospitalization Ordered by Alfonso Fitzpatrick MD for Inpatient bp Admission. Preliminary diagnosis is Chronic obstructive pulmonary disease with (acute) exacerbation; Hypoxemia. Bed requested for Telemetry/MedSurg (observation). Status is Inpatient Admission. Condition is Fair. Problem is an acute exacerbation. Symptoms have improved. UTI on Admission? No. eb
--- NOTE | 2018-01-06 12:54 | ER ---
Nurse's Notes [facility] Name: Zohreh López Age: 82 yrs Sex: Female : 1935 Arrival Date: 01/06/2018 Time: 09:49 Bed 8 Private MD: Diagnosis: Chronic obstructive pulmonary disease with (acute) exacerbation;Hypoxemia Presentation: 01/06 09:58 Presenting complaint: Patient states: SHORTNESS OF BREATH. Transition of care: patient bp was not received from another setting of care. Onset of symptoms is unknown. Risk Assessment: Do you want to hurt yourself or someone else? Patient reports no desire to harm self or others. Initial Sepsis Screen: Does the patient meet any 2 criteria? RR > 20 per min. No. Patient's initial sepsis screen is negative. Does the patient have a suspected source of infection? No. Patient's initial sepsis screen is negative. Care prior to arrival: None. 09:58 Method Of Arrival: Wheelchair bp 09:58 Acuity: KALEB 2 bp Triage Assessment: 10:03 General: Appears distressed, comfortable, obese, Behavior is cooperative, appropriate bp for age, anxious. Pain: Denies pain. Respiratory: Reports shortness of breath on exertion cough that is productive, Onset: The symptoms/episode began/occurred yesterday, the patient has moderate shortness of breath. Historical: - Allergies: 10:00 No Known Allergies; bp - Home Meds: 10:00 Anoro Ellipta 62.5-25 mcg/actuation inhalation dsdv 1 puff once daily [Active]; aspirin bp 81 mg Oral chew 1 tab once daily [Active]; atenolol 50 mg Oral tab 1 tab once daily [Active]; atorvastatin 40 mg Oral tab 1 tab once daily [Active]; Daliresp 500 mcg Oral tab 1 tab once daily [Active]; ipratropium bromide 0.02 % inhalation soln 1.25 mL 3 times per day [Active]; latanoprost (bulk) 100 % miscellaneous oil [Active]; levothyroxine 75 mcg tab 1 tab once daily [Active]; magnesium oxide 400 mg Oral cap [Active]; oxybutynin chloride 10 mg Oral tr24 1 tab once daily [Active]; Zetia 10 mg Oral tab 1 tab once daily [Active]; - PMHx: 10:00 COPD; Hypertension; bp - Immunization history:: Adult Immunizations up to date. - Social history:: Smoking status: Patient/guardian denies using tobacco. - Ebola Screening: : Patient negative for fever greater than or equal to 101.5 degrees Fahrenheit, and additional compatible Ebola Virus Disease symptoms Patient denies exposure to infectious person Patient denies travel to an Ebola-affected area in the 21 days before illness onset No symptoms or risks identified at this time. Screenin:15 Abuse screen: Denies threats or abuse. Denies injuries from another. Nutritional bp screening: No deficits noted. Tuberculosis screening: No symptoms or risk factors identified. Fall Risk No fall in past 12 months (0 pts). No secondary diagnosis (0 pts). IV access (20 points). Ambulatory Aid- None/Bed Rest/Nurse Assist (0 pts). Gait- Weak (10 pts.). Mental Status- Oriented to own ability (0 pts). Total Haley Fall Scale indicates Low Risk Score (25-44 pts). Fall prevention measures have been instituted. Side Rails Up X 2 Placed close to Nursing Station Frequent Obs/Assesments occuring Family Present and informed to notify staff if they need to leave bedside As available Patient and Family Educated on Fall Prevention Program and strategies. Assessment: 10:00 General: Appears distressed, uncomfortable, obese, Behavior is cooperative, appropriate bp for age, anxious. Pain: Denies pain. Neuro: Level of Consciousness is awake, alert, obeys commands, Oriented to person, place, time, situation, Appropriate for age. Cardiovascular: Rhythm is sinus rhythm. Respiratory: Airway is patent Respiratory effort is even, labored, Respiratory pattern is tachypnea Breath sounds with crackles bilaterally. GI: No signs and/or symptoms were reported involving the gastrointestinal system. : No signs and/or symptoms were reported regarding the genitourinary system. EENT: No deficits noted. Derm: No deficits noted. Musculoskeletal: Circulation, motion, and sensation intact. Range of motion: intact in all extremities. 11:53 Reassessment: PT STATES RELIEF OF S/S, DISPO PENDING. bp 13:02 Reassessment: ADMIT IN PROCESS, PT S/S RELIEVED AT REST, BUT AFFIRMS EXERTIONAL DYSPNEA.bp 15:50 Reassessment: PT ADMITTED TO 221 ON O2. bp Vital Signs: 10:00 Pulse Ox 81% on 2 lpm NC; bp 10:03 BP 181 / 93; Pulse 63; Resp 24; Temp 98.4; Pulse Ox 100% ; Weight 86.18 kg; Height 5 bp ft. 3 in. (160.02 cm); 10:44 BP 141 / 55; Pulse 64; Resp 20; Pulse Ox 99% on 15% Nebulizer Mask; mh5 11:51 BP 144 / 41; Pulse 70; Resp 18; Pulse Ox 96% on 2 lpm NC; bp 13:01 BP 157 / 79; Pulse 70; Resp 16; Pulse Ox 97% ; bp 10:03 Body Mass Index 33.66 (86.18 kg, 160.02 cm) bp ED Course: 09:49 Patient arrived in ED. mr 09:56 Samuel Pop PA is PHCP. cp 09:56 Colten Yuan MD is Attending Physician. cp 09:58 Branden Méndez, KRISTI is Primary Nurse. bp 09:59 Triage completed. bp 10:02 Inserted saline lock: 20 gauge in left forearm, using aseptic technique. Blood bp collected. Oxygen administration via non-rebreather mask \T\ 15L/min Response to oxygen therapy: symptoms improved. 10:04 Arm band placed on. bp 10:07 EKG done, by biomass plant technician. reviewed by Samuel CHILDS. at1 10:44 XRAY Chest (1 view) In Process Unspecified. EDMS 10:46 Patient has correct armband on for positive identification. Bed in low position. Call mh5 light in reach. Side rails up X 1. Pulse ox on. NIBP on. 12:52 Alfonso Fitzpatrick MD is Hospitalizing Provider. cp 15:49 No provider procedures requiring assistance completed. Patient admitted, IV remains in bp place. Administered Medications: 10:15 Drug: Albuterol - atroVENT (3:1) (2.5 mg - 0.5 mg) 3 ml Route: Nebulizer; bp 11:18 Follow up: Response: Marked relief of symptoms bp 10:15 Drug: SOLU-Medrol 125 mg Route: IVP; Site: right forearm; bp 11:17 Follow up: Response: Marked relief of symptoms bp Outcome: 12:53 Decision to Hospitalize by Provider. cp 15:49 Admitted to Tele accompanied by tech, family with patient, via wheelchair, room 221, bp with oxygen, with chart, Report called to VIKTOR BERRY 15:49 Condition: stable 15:49 Instructed on the need for admit. 16:08 Patient left the ED. bp Signatures: Dispatcher [employer] CHERRI MishraRobyn mars Tao, Carol, laundry laborer EKG Tat1 Samuel Pop PA PA cp Martinez, [facility] Branden Méndez, RN RN bp
[2018-01-06] MEDS ORDERED: ONDANSETRON 4 MG/2 ML VIAL IV PRN (13:42)
--- NOTE | 2018-01-06 14:36 | EKG ---
Test Date: 2018-01-06 Test Time: 10:02:38 Patient Advocate: DESIREE MEASUREMENT RESULTS: Intervals: Rate: 57 MI: 164 QRSD: 74 QT: 444 QTc: 432 Dennis: P: 58 MI: 164 QRS: 60 T: 65 INTERPRETIVE STATEMENTS: Sinus bradycardia Nonspecific T wave abnormality Abnormal ECG Compared to ECG 11/21/2017 17:46:25 Sinus rhythm no longer present T-wave abnormality still present Electronically Signed On 01-06-18 14:34:00 HEARING SPECIALIST by Landen Colby
[2018-01-06] MEDS: IPRATROPIUM BROM 0.5MG/2.5ML NEB SCH ×2 (15:00→20:01)
[2018-01-06] MEDS ORDERED: ENOXAPARIN 40 MG/0.4 ML SQ SCH (15:00)
[2018-01-06] MEDS: ALBUTEROL 2.5 MG/3 ML NEB SOL NEB SCH ×2 (15:00→20:01)
[2018-01-06 16:49] VITALS: BMI 33.6
[2018-01-06] MEDS: METHYLPREDNISOLONE 40 MG INJ IV SCH (17:51)
[2018-01-06] MEDS ORDERED: FAMOTIDINE 20 MG/2 ML VIAL IV SCH (21:00)
[2018-01-06] MEDS: FAMOTIDINE 20 MG/2 ML VIAL IV SCH (21:25)
[2018-01-07] MEDS: METHYLPREDNISOLONE 40 MG INJ IV SCH ×5 (00:27→23:42)
[2018-01-07] MEDS: IPRATROPIUM BROM 0.5MG/2.5ML NEB SCH ×6 (02:00→20:25)
[2018-01-07] MEDS: ALBUTEROL 2.5 MG/3 ML NEB SOL NEB SCH ×4 (02:00→20:25)
[2018-01-07 05:25] LABS: Absolute Lymphocytes (CBC) 0.9 K/uL (0.7-4.9); Absolute Monocytes 0.1 K/uL (0.1-1.3); Absolute Neutrophil 9.1 K/uL (1.8-8.0); Basophils % 0.2 % (0-1.3); Hematocrit 28.9 % (36.0-45.0); Lymphocytes % 8.4 % (15.3-44.8); MCH 29.9 pg (27.0-35.0); MCV 86.4 fL (80-100); MPV 7.6 fL (7.6-11.3); Monocytes % 1.4 % (3.3-12.3); RBC Red Blood Cell Count 3.34 M/uL (3.86-4.86)
[2018-01-07] MEDS: LEVOTHYROXINE SOD 0.075 MG TAB PO SCH (05:41)
[2018-01-07 05:47] LABS: Magnesium 2.9 mg/dL (1.8-2.4); Potassium 4.5 mmol/L (3.5-5.1)
[2018-01-07] MEDS ORDERED: Levofloxacin500mg IV 500 MG/100 ML BAG IV ONE (09:00)
[2018-01-07] MEDS ORDERED: ASPIRIN EC 81 MG TAB PO SCH (09:00)
[2018-01-07 09:26] LABS: Platelet Estimate ADEQ; Urine White Blood Cell Casts OK
[2018-01-07 09:27] LABS: Blood Morphology Comment NOT SEEN (NOT SEEN)
[2018-01-07] MEDS: OXYBUTYNIN ER 5 MG TAB PO SCH (10:43)
[2018-01-07] MEDS: ROFLUMILAST 500 MCG TABLET PO SCH (10:44)
[2018-01-07] MEDS: ATENOLOL 50 MG TAB PO SCH (10:45)
[2018-01-07] MEDS: ENOXAPARIN 30 MG/0.3 ML SQ SCH (10:45)
[2018-01-07] MEDS: AMLODIPINE 5 MG TAB PO SCH (10:45)
[2018-01-07] MEDS: EZETIMIBE 10 MG TAB PO SCH (10:45)
[2018-01-07] MEDS: MAGNESIUM OXIDE 400 MG TAB PO SCH ×2 (10:46→20:20)
[2018-01-07] MEDS: FAMOTIDINE 20 MG/2 ML VIAL IV SCH ×2 (10:46→20:21)
--- NOTE | 2018-01-07 13:43 | ECHO ---
HEIGHT: 5 ft 3 in WEIGHT: 190 lb 0 oz DATE OF STUDY: 01/07/[address]: Samuel Pop 2-DIMENSIONAL: YES M.MODE: YES DOPPLER: YES COLOR FLOW: YES TDS: PORTABLE: DEFINITY: BUBBLE STUDY: DIAGNOSIS: SHORTNESS OF BREATH. CARDIAC HISTORY: CATHERIZATION: NO SURGERY: NO PROSTHETIC VALVE: NO PACEMAKER: NO MEASUREMENTS (cm) DIASTOLIC (NORMALS) SYSTOLIC (NORMALS) IVSd 1.1 (0.6-1.2) LVIDs 2.5 (2.0-3.5) LVEF 75% LVIDd 4.4 (3.5-5.7) %FS 44% LVPWd 1.2 (0.6-1.2) Ao Diam 2.7 (2.0-3.7) 2 DIMENSIONAL ASSESSMENT: RIGHT ATRIUM: NORMAL LEFT ATRIUM: NORMAL RIGHT VENTRICLE: NORMAL LEFT VENTRICLE: NORMAL TRICUSPID VALVE: NORMAL MITRAL VALVE: NORMAL PULMONIC VALVE: NORMAL AORTIC VALVE: SCLEROSIS PERICARDIAL EFFUSION: NONE AORTIC ROOT: NORMAL LEFT VENTRICULAR WALL MOTION: NORMAL DOPPLER/COLOR FLOW: IMPAIRED LEFT VENTRICULAR RELAXATION. NO AORTIC STENOSIS OR AORTIC REGURGITATION. COMMENTS: NORMAL LEFT VENTRICULAR EJECTION FRACTION. AORTIC SCLEROSIS WITH NO AORTIC STENOSIS OR AORTIC REGURGITATION. IMPAIRED LEFT VENTRICULAR RELAXATION. TECHNOLOGIST: VARGHESE WATTS
--- NOTE | 2018-01-07 19:58 | HP ---
Date of Admission: 01/06/2018 Chief Complaint: Wheezing and coughing. History Of Present Illness: An 82-year-old female was brought to the emergency room because of cough ing and wheezing. She had evaluation done. She was found to have COPD exacerbation and admitted. N o history of fever, chills, or rigors. Past Medical History: Positive for COPD and hypertension. Family History: Noncontributory. Personal History: No known allergies. Review of Systems: No history of chest pain, fever, chills, or rigors. Physical Examination: General: Revealed 82-year-old female with audible wheezing. Vital Signs: Otherwise negative. HEENT: Congested throat. Neck: No JVD. Chest: Bilateral scattered wheezes. Heart: Regular. Abdomen: Soft. Extremities: No edema. Laboratory Data: White count normal. Chem profile essentially normal except for BNP of 717. Tropon in normal. Chest x-ray, COPD changes. Assessment: 1.Chronic obstructive pulmonary disease exacerbation. 2.Rule out congestive heart failure. 3.Hypertension. Plan: IV steroids, breathing treatments, echocardiogram. The patient's blood cultures are reported positive. I am not sure whether it is false positive. However, she will be given Levaquin, pending clarification. FLORENCE/AUSTYN Voice ID: [id number]
[2018-01-07] MEDS: ATORVASTATIN 40 MG TAB PO SCH (20:20)
[2018-01-07] MEDS: ASPIRIN EC 81 MG TAB PO SCH (20:20)
[2018-01-07] MEDS: LATANOPROST OP SCH (20:30)
[2018-01-08] MEDS: IPRATROPIUM BROM 0.5MG/2.5ML NEB SCH ×6 (00:40→19:24)
[2018-01-08] MEDS: ALBUTEROL 2.5 MG/3 ML NEB SOL NEB SCH ×4 (04:24→19:24)
[2018-01-08] MEDS: LEVOTHYROXINE SOD 0.075 MG TAB PO SCH (05:06)
[2018-01-08] MEDS: METHYLPREDNISOLONE 40 MG INJ IV SCH ×3 (05:08→18:04)
[2018-01-08] MEDS: ATENOLOL 50 MG TAB PO SCH (08:38)
[2018-01-08] MEDS: OXYBUTYNIN ER 5 MG TAB PO SCH (08:39)
[2018-01-08] MEDS: EZETIMIBE 10 MG TAB PO SCH (08:39)
[2018-01-08] MEDS: ROFLUMILAST 500 MCG TABLET PO SCH (08:39)
[2018-01-08] MEDS: MAGNESIUM OXIDE 400 MG TAB PO SCH ×2 (08:40→20:20)
[2018-01-08] MEDS: ENOXAPARIN 30 MG/0.3 ML SQ SCH (08:41)
[2018-01-08] MEDS: AMLODIPINE 5 MG TAB PO SCH (08:41)
[2018-01-08] MEDS: Levofloxacin 250mg IV 250 MG/50 ML BAG IV SCH (08:42)
[2018-01-08] MEDS: FAMOTIDINE 20 MG/2 ML VIAL IV SCH ×2 (08:42→20:20)
[2018-01-08] MEDS: ASPIRIN EC 81 MG TAB PO SCH (20:20)
[2018-01-08] MEDS: ATORVASTATIN 40 MG TAB PO SCH (20:20)
[2018-01-08] MEDS: LATANOPROST OP SCH (20:22)
[2018-01-09] MEDS: METHYLPREDNISOLONE 40 MG INJ IV SCH ×3 (00:03→12:00)
--- NOTE | 2018-01-09 00:08 | PN ---
Patient's wheezing is better, however, she claims that she lives alone and she is considering group home placement. The patient had been seeing a Pulmonary physician in [place]. However, she would l shen to use local pulmonary as she has severe COPD, pulmonary consultation, as well as Social Service consultation has been done. FLORENCE/AUSTYN Voice ID: [id number] Report ID: [id number]
[2018-01-09] MEDS: ALBUTEROL 2.5 MG/3 ML NEB SOL NEB SCH ×2 (01:30→08:55)
[2018-01-09] MEDS: IPRATROPIUM BROM 0.5MG/2.5ML NEB SCH ×3 (01:30→08:56)
[2018-01-09] MEDS: LEVOTHYROXINE SOD 0.075 MG TAB PO SCH (05:41)
[2018-01-09] MEDS: ENOXAPARIN 30 MG/0.3 ML SQ SCH (09:33)
[2018-01-09] MEDS: Levofloxacin 250mg IV 250 MG/50 ML BAG IV SCH (09:33)
[2018-01-09] MEDS: OXYBUTYNIN ER 5 MG TAB PO SCH (09:33)
[2018-01-09] MEDS: FAMOTIDINE 20 MG/2 ML VIAL IV SCH (09:34)
[2018-01-09] MEDS: MAGNESIUM OXIDE 400 MG TAB PO SCH (09:34)
[2018-01-09] MEDS: EZETIMIBE 10 MG TAB PO SCH (09:34)
[2018-01-09] MEDS: AMLODIPINE 5 MG TAB PO SCH (09:35)
[2018-01-09] MEDS: ATENOLOL 50 MG TAB PO SCH (09:35)
[2018-01-09] MEDS: ROFLUMILAST 500 MCG TABLET PO SCH (09:35)
[2018-01-09 12:18] VITALS: O2SAT 92
[2018-01-09 13:02] VITALS: BP 139/68; TEMP 97.7
== END 2018-01-09 13:08 | disposition home or self-care (01) | DRG 192 ==
LOC: ER 09:48 → ERHOLD 13:40 → 2ND 15:49 → OBSVTOIN 01-08 14:34
PROVIDERS: ADMIT Internal Medicine; ATTEND Internal Medicine
DX: J44.1 Chronic obstructive pulmonary disease with (acute) exacerbation (principal); I10 Essential (primary) hypertension; E66.9 Obesity, unspecified; Z68.33 Body mass index [BMI] 33.0-33.9, adult; Z79.82 Long term (current) use of aspirin
CPT/HCPCS: 36415; 71045; 80048; 80061; 80076; 81003; 81015; 83605; 83735; 83880; 84100; 84145; 84484; 85025; 85610; 87040; 87077; 87186; 87205; 93005; 93306; 94640; 94660; 94760; 96374; 99285; G0378; J1650; J2405; J2920; J2930

== ENCOUNTER 2018-02-21 17:59 | Inpatient (IN) | payer OTHER, BC ==
--- OUTSIDE RECORDS SUMMARY | 2018-02-21 18:01 | XMS REPORT | Clinical Summary ---
:1935 Author Organization [employer] Address [address] [place] [address] Care Team Providers Name Role Phone Asked, [...] Health Maintenance Due Date Last Done Comments SHINGLES VACCINES (1 of 2) 1984 PNEUMOCOCCAL POLYSACCHARIDE VACCINE AGE 65 AND OVER 04/28/1999 PNEUMOCOCCAL-13 04/28/1999 INFLUENZA VACCINE 09/08/2017 Results Not on fileafter 02/20/2017 Insurance Payer Benefit Plan / Group Subscriber ID Type Phone Address MEDICARE MEDICARE PART A AND B xxxxxxxxxx Medicare [facility] xxxxxxxxx HMO ([place]) [place] [address] Advance Directives Patient has advance care planning documents, and code status on file. For more information, please contact:[place] [address] Code Status Date Activated Date Inactivated Comments Full Code 09/11/2015 1:03 AM 09/15/2015 7:57 PM Code Status decision reached by: Patient
--- OUTSIDE RECORDS SUMMARY | 2018-02-21 18:02 | XMS REPORT ---
:1935 [facility] [place] [address] Care Team Providers Name Role Phone AMAIRANI MOSQUEDA Unavailable Unavailable Problems This patient has no known problems. Allergies, Adverse Reactions, Alerts This patient has no known allergies or adverse reactions. Medications This patient has no known medications. Results Test Description Test Time Test Comments Text Results Atomic Results Result Comments BLOOD CULTURE 2017-11-27 11:00:00 Test Item Value Reference Range Comments CULTURE (BEAKER) (test dkoi=7697) No growth in 5 days TISSUE [id number] 17:04:00Surgical Pathology Report Case: [id number] Authorizing Provider: Yumi Shah MD Collected: 11/24/2017 1755 Ordering Location: [facility] PERIOPERATIVE Received: 11/25/2017 0841 SERVICES Pathologist: Robyn Patino MD Specimen: Gallbladder GALLBLADDER, CHOLECYSTECTOMY: - CHRONIC CHOLECYSTITIS WITH CHOLELITHIASISMO/pl Signing Pathologist Direct PhoneLine: [phone] signed by Robyn Patino MD on 11/26 at 5:04 [id number] of gallbladder without cholecystitis without obstruction Gallbladder [...] A1, parallel cystic duct resection margin; A2, rental sales representative section of gallbladder. DB/pl The gallbladder shows chronic cholecystitis. Some of the mucosa is autolyzed, but there are still discernible Rokitansky-Aschoff sinuses. Some of the mucosa shows duplicated bland glandular elements, also autolyzed, possibly representing focal adenomyosis. Some bile stained elements are present within Rokitansky-Aschoff sinuses as well. There are also some cystic changes. Atypia is not noted.[id number] 06:24:00 Test Item Value Reference Range Comments PHOSPHORUS (BEAKER) (test ngfg=558) 4.1 mg/dL 2.3-4.7 [id number] 06:24:00 Test Item Value Reference Range Comments MAGNESIUM (BEAKER) (test qkwk=456) 2.1 mg/dL 1.6-2.6 BASIC METABOLIC [id number] 06:24:00 Test Item Value Reference Range Comments SODIUM (BEAKER) (test 139 meq/L 136-145 ycla=436) POTASSIUM (BEAKER) (test 5.6 meq/L 3.5-5.1 lchu=365) CHLORIDE (BEAKER) (test 107 meq/L 98-107 qbaa=011) CO2 (BEAKER) (test 27 meq/L 22-29 ancv=077) BLOOD UREA NITROGEN 17 mg/dL 7-21 (BEAKER) (test telw=623) CREATININE (BEAKER) (test 1.10 mg/dL 0.57-1.25 wxcl=660) GLUCOSE RANDOM (BEAKER) 125 mg/dL 70-105 (test hkoi=936) CALCIUM (BEAKER) (test 10.1 mg/dL 8.4-10.2 vbgj=341) EGFR (BEAKER) (test 47 mL/min/1.73 sq m ESTIMATED GFR IS NOT npkh=3227) ACCURATE CREATININE CLEARANCE IN PREDICTING GLOMERULAR FILTRATION RATE. ESTIMATED GFR IS NOT APPLICABLE FOR DIALYSIS PATIENTS. HEPATIC FUNCTION [id number] 06:24:00 Test Item Value Reference Range Comments TOTAL PROTEIN (BEAKER) (test wlzs=847) 6.3 gm/dL 6.0-8.3 ALBUMIN (BEAKER) (test wpip=7843) 3.4 g/dL 3.5-5.0 BILIRUBIN TOTAL (BEAKER) (test pawo=765) 0.4 mg/dL 0.2-1.2 BILIRUBIN DIRECT (BEAKER) (test rvxg=205) 0.2 mg/dL 0.1-0.5 ALKALINE PHOSPHATASE (BEAKER) (test kmwg=374) 230 U/L 40-150 AST (SGOT) (BEAKER) (test bffp=665) 84 U/L 5-34 ALT (SGPT) (BEAKER) (test thhs=667) 216 U/L 6-55 CBC W/PLT COUNT & AUTO [id number] 05:44:00 Test Item Value Reference Range Comments WHITE BLOOD CELL COUNT (BEAKER) (test qprc=711) 11.5 K/ L 3.5-10.5 RED BLOOD CELL COUNT (BEAKER) (test hjyy=134) 3.23 M/ L 3.93-5.22 HEMOGLOBIN (BEAKER) (test pffs=163) 9.4 GM/DL 11.2-15.7 HEMATOCRIT (BEAKER) (test ffeh=760) 31.5 % 34.1-44.9 MEAN CORPUSCULAR VOLUME (BEAKER) (test dvcc=052) 97.5 fL 79.4-94.8 MEAN CORPUSCULAR HEMOGLOBIN (BEAKER) (test 29.1 pg 25.6-32.2 ioun=694) MEAN CORPUSCULAR HEMOGLOBIN CONC (BEAKER) (test 29.8 GM/DL 32.2-35.5 cqaj=855) RED CELL DISTRIBUTION WIDTH (BEAKER) (test 13.3 % 11.7-14.4 koug=821) PLATELET COUNT (BEAKER) (test dnav=234) 208 K/CU MM 150-450 MEAN PLATELET VOLUME (BEAKER) (test uiec=288) 9.4 fL 9.4-12.3 NUCLEATED RED BLOOD CELLS (BEAKER) (test 0 /100 WBC 0-0 yflp=625) NEUTROPHILS RELATIVE PERCENT (BEAKER) (test 88 % diur=487) LYMPHOCYTES RELATIVE PERCENT (BEAKER) (test 8 % kvsb=070) MONOCYTES RELATIVE PERCENT (BEAKER) (test 3 % uulu=477) EOSINOPHILS RELATIVE PERCENT (BEAKER) (test 0 % zfiq=101) BASOPHILS RELATIVE PERCENT (BEAKER) (test 0 % yfvo=258) NEUTROPHILS ABSOLUTE COUNT (BEAKER) (test 10.06 K/ L 1.56-6.13 cnfq=145) LYMPHOCYTES ABSOLUTE COUNT (BEAKER) (test 0.92 K/ L 1.18-3.74 wijd=753) MONOCYTES ABSOLUTE COUNT (BEAKER) (test 0.32 K/ L 0.24-0.36 jjcz=973) EOSINOPHILS ABSOLUTE COUNT (BEAKER) (test 0.00 K/ L 0.04-0.36 zles=965) BASOPHILS ABSOLUTE COUNT (BEAKER) (test 0.02 K/ L 0.01-0.08 tuay=855) IMMATURE GRANULOCYTES-RELATIVE PERCENT (BEAKER) 1 % 0-1 (test psal=2083) [id number] 07:27:00 Test Item Value Reference Range Comments MAGNESIUM (BEAKER) (test fiza=903) 2.0 mg/dL 1.6-2.6 BASIC METABOLIC [id number] 07:27:00 Test Item Value Reference Range Comments SODIUM (BEAKER) (test 138 meq/L 136-145 wuvd=755) POTASSIUM (BEAKER) (test 5.5 meq/L 3.5-5.1 hyjw=948) CHLORIDE (BEAKER) (test 105 meq/L 98-107 jtny=907) CO2 (BEAKER) (test 28 meq/L 22-29 norz=124) BLOOD UREA NITROGEN 12 mg/dL 7-21 (BEAKER) (test ovgy=370) CREATININE (BEAKER) (test 0.99 mg/dL 0.57-1.25 aswk=419) GLUCOSE RANDOM (BEAKER) 119 mg/dL 70-105 (test eucj=245) CALCIUM (BEAKER) (test 10.0 mg/dL 8.4-10.2 ffsi=479) EGFR (BEAKER) (test 54 mL/min/1.73 sq m ESTIMATED GFR IS NOT rokv=2815) ACCURATE CREATININE CLEARANCE IN PREDICTING GLOMERULAR FILTRATION RATE. ESTIMATED GFR IS NOT APPLICABLE FOR DIALYSIS PATIENTS. HEPATIC FUNCTION [id number] 07:27:00 Test Item Value Reference Range Comments TOTAL PROTEIN (BEAKER) (test jzcv=661) 6.4 gm/dL 6.0-8.3 ALBUMIN (BEAKER) (test rqoe=8080) 3.3 g/dL 3.5-5.0 BILIRUBIN TOTAL (BEAKER) (test ugya=672) 0.4 mg/dL 0.2-1.2 BILIRUBIN DIRECT (BEAKER) (test scsi=485) 0.2 mg/dL 0.1-0.5 ALKALINE PHOSPHATASE (BEAKER) (test tset=693) 261 U/L 40-150 AST (SGOT) (BEAKER) (test levb=123) 79 U/L 5-34 ALT (SGPT) (BEAKER) (test nyam=551) 267 U/L 6-55 PROTHROMBIN [id number] 07:20:00 Test Item Value Reference Range Comments PROTIME (BEAKER) (test fojt=446) 14.2 seconds 11.7-14.7 INR (BEAKER) (test gvvh=312) 1.1 <=5.9 RECOMMENDED COUMADIN/WARFARIN INR THERAPY RANGESSTANDARD DOSE: 2.0 - 3.0 Includes: PROPHYLAXIS forvenous thrombosis, systemic embolization; TREATMENT for venous thrombosis and/or pulmonary embolus.HIGH RISK: Target INR is 2.5-3.5 for patients with mechanical heart valves.CBC W/PLT COUNT & AUTO [id number] 07:09:00 Test Item Value Reference Range Comments WHITE BLOOD CELL COUNT (BEAKER) (test ecjg=051) 6.7 K/ L 3.5-10.5 RED BLOOD CELL COUNT (BEAKER) (test rvji=131) 3.20 M/ L 3.93-5.22 HEMOGLOBIN (BEAKER) (test zxwh=389) 9.2 GM/DL 11.2-15.7 HEMATOCRIT (BEAKER) (test euam=536) 30.4 % 34.1-44.9 MEAN CORPUSCULAR VOLUME (BEAKER) (test unxu=496) 95.0 fL 79.4-94.8 MEAN CORPUSCULAR HEMOGLOBIN (BEAKER) (test 28.8 pg 25.6-32.2 xlnb=662) MEAN CORPUSCULAR HEMOGLOBIN CONC (BEAKER) (test 30.3 GM/DL 32.2-35.5 xvje=878) RED CELL DISTRIBUTION WIDTH (BEAKER) (test 13.2 % 11.7-14.4 wtcb=955) PLATELET COUNT (BEAKER) (test inhc=132) 230 K/CU MM 150-450 MEAN PLATELET VOLUME (BEAKER) (test pvfx=604) 9.5 fL 9.4-12.3 NUCLEATED RED BLOOD CELLS (BEAKER) (test 0 /100 WBC 0-0 qfkl=302) NEUTROPHILS RELATIVE PERCENT (BEAKER) (test 83 % jnpx=512) LYMPHOCYTES RELATIVE PERCENT (BEAKER) (test 12 % zdln=571) MONOCYTES RELATIVE PERCENT (BEAKER) (test 2 % dghk=747) EOSINOPHILS RELATIVE PERCENT (BEAKER) (test 0 % mzdr=307) BASOPHILS RELATIVE PERCENT (BEAKER) (test 0 % zkpb=421) NEUTROPHILS ABSOLUTE COUNT (BEAKER) (test 5.60 K/ L 1.56-6.13 syjm=803) LYMPHOCYTES ABSOLUTE COUNT (BEAKER) (test 0.78 K/ L 1.18-3.74 dfuk=217) MONOCYTES ABSOLUTE COUNT (BEAKER) (test 0.14 K/ L 0.24-0.36 xzex=422) EOSINOPHILS ABSOLUTE COUNT (BEAKER) (test 0.00 K/ L 0.04-0.36 asuz=207) BASOPHILS ABSOLUTE COUNT (BEAKER) (test 0.01 K/ L 0.01-0.08 yhvo=607) IMMATURE GRANULOCYTES-RELATIVE PERCENT (BEAKER) 3 % 0-1 (test ngmz=0164) CO, [id number] 18:31:00Reason for exam:->stonesFINAL REPORT ERCP, 11/23/2017 Clinical [...] MDReport Verified Date/Time: 11/23/2017 18:31:29 Reading Location: [facility] [id number] Consult Reading Room Electronicallysigned by: ESTHER GILBERT M.D. on 11/23/2017 06:31 [id number] 05:44:00 Test Item Value Reference Range Comments MAGNESIUM (BEAKER) (test etyg=253) 2.4 mg/dL 1.6-2.6 BASIC METABOLIC [id number] 05:44:00 Test Item Value Reference Range Comments SODIUM (BEAKER) (test 138 meq/L 136-145 wcej=621) POTASSIUM (BEAKER) (test 4.6 meq/L 3.5-5.1 xhmb=434) CHLORIDE (BEAKER) (test 104 meq/L 98-107 tuxv=419) CO2 (BEAKER) (test 30 meq/L 22-29 zccm=691) BLOOD UREA NITROGEN 14 mg/dL 7-21 (BEAKER) (test qlmj=050) CREATININE (BEAKER) (test 0.94 mg/dL 0.57-1.25 hmih=090) GLUCOSE RANDOM (BEAKER) 97 mg/dL 70-105 (test pslx=302) CALCIUM (BEAKER) (test 10.2 mg/dL 8.4-10.2 fkfl=968) EGFR (BEAKER) (test 57 mL/min/1.73 sq m ESTIMATED GFR IS NOT fdwx=5365) ACCURATE CREATININE CLEARANCE IN PREDICTING GLOMERULAR FILTRATION RATE. ESTIMATED GFR IS NOT APPLICABLE FOR DIALYSIS PATIENTS. HEPATIC FUNCTION [id number] 05:44:00 Test Item Value Reference Range Comments TOTAL PROTEIN (BEAKER) (test okgn=716) 6.6 gm/dL 6.0-8.3 ALBUMIN (BEAKER) (test aefr=8437) 3.5 g/dL 3.5-5.0 BILIRUBIN TOTAL (BEAKER) (test luja=963) 0.6 mg/dL 0.2-1.2 BILIRUBIN DIRECT (BEAKER) (test wgyk=602) 0.3 mg/dL 0.1-0.5 ALKALINE PHOSPHATASE (BEAKER) (test qofq=692) 315 U/L 40-150 AST (SGOT) (BEAKER) (test rsgm=511) 223 U/L 5-34 ALT (SGPT) (BEAKER) (test lpjt=224) 429 U/L 6-55 [id number] 05:33:00 Test Item Value Reference Range Comments PARTIAL THROMBOPLASTIN TIME (BEAKER) (test 28.1 seconds 22.5-36.0 iunt=097) PROTHROMBIN [id number] 05:32:00 Test Item Value Reference Range Comments PROTIME (BEAKER) (test iitp=342) 13.5 seconds 11.7-14.7 INR (BEAKER) (test zfkk=789) 1.0 <=5.9 RECOMMENDED COUMADIN/WARFARIN INR THERAPY RANGESSTANDARD DOSE: 2.0 - 3.0 Includes: PROPHYLAXIS forvenous thrombosis, systemic embolization; TREATMENT for venous thrombosis and/or pulmonary embolus.HIGH RISK: Target INR is 2.5-3.5 for patients with mechanical heart valves.CBC W/PLT COUNT & AUTO [id number] 05:13:00 Test Item Value Reference Range Comments WHITE BLOOD CELL COUNT (BEAKER) (test quzp=082) 8.2 K/ L 3.5-10.5 RED BLOOD CELL COUNT (BEAKER) (test ydsc=046) 3.15 M/ L 3.93-5.22 HEMOGLOBIN (BEAKER) (test pwxq=892) 9.2 GM/DL 11.2-15.7 HEMATOCRIT (BEAKER) (test xpbv=804) 29.8 % 34.1-44.9 MEAN CORPUSCULAR VOLUME (BEAKER) (test mken=423) 94.6 fL 79.4-94.8 MEAN CORPUSCULAR HEMOGLOBIN (BEAKER) (test 29.2 pg 25.6-32.2 staz=723) MEAN CORPUSCULAR HEMOGLOBIN CONC (BEAKER) (test 30.9 GM/DL 32.2-35.5 axxk=681) RED CELL DISTRIBUTION WIDTH (BEAKER) (test 13.4 % 11.7-14.4 osac=235) PLATELET COUNT (BEAKER) (test gxei=666) 213 K/CU MM 150-450 MEAN PLATELET VOLUME (BEAKER) (test hwsy=690) 9.4 fL 9.4-12.3 NUCLEATED RED BLOOD CELLS (BEAKER) (test 0 /100 WBC 0-0 cbyc=436) NEUTROPHILS RELATIVE PERCENT (BEAKER) (test 65 % mlfp=130) LYMPHOCYTES RELATIVE PERCENT (BEAKER) (test 26 % twqh=007) MONOCYTES RELATIVE PERCENT (BEAKER) (test 6 % tnqg=874) EOSINOPHILS RELATIVE PERCENT (BEAKER) (test 3 % vtws=306) BASOPHILS RELATIVE PERCENT (BEAKER) (test 0 % cjrz=212) NEUTROPHILS ABSOLUTE COUNT (BEAKER) (test 5.30 K/ L 1.56-6.13 stbw=542) LYMPHOCYTES ABSOLUTE COUNT (BEAKER) (test 2.11 K/ L 1.18-3.74 mqgg=046) MONOCYTES ABSOLUTE COUNT (BEAKER) (test 0.45 K/ L 0.24-0.36 gizx=337) EOSINOPHILS ABSOLUTE COUNT (BEAKER) (test 0.25 K/ L 0.04-0.36 szqk=023) BASOPHILS ABSOLUTE COUNT (BEAKER) (test 0.03 K/ L 0.01-0.08 tmyg=280) IMMATURE GRANULOCYTES-RELATIVE PERCENT (BEAKER) 1 % 0-1 (test bvdl=6625) MR, ABDOMEN, [id number] 10:20:00FINAL REPORT MRCP, MRI of abdomen without [...] [place] Verified Date/Time: 11/22/2017 10:20:53 Reading Location: [facility] B1 C013X Ortho Consult Reading RoomElectronically signed by: MIHAI MONROY M.D. on 10:20 AMRAD, CHEST, 2 [id number] 09:59:00Reason for exam:-> rhonchi on examFINAL REPORT CLINICAL HISTORY: rhonchi on exam TECHNIQUE: 2 views of the chest COMPARISON: None IMPRESSION: There are mildly prominent interstitial markings, but without lobar consolidation or pleural effusions. There is mild cardiomegaly. The bones are osteopenic. Signed : Pari Barkley Verified Date/Time: 11/22/2017 09:59:21 Reading Location: [facility] Radiology Reading Room HEPATITIS PANEL, [id number] 09: 45:00 Test Item Value Reference Range Comments HEPATITIS A IGM ANTIBODY (BEAKER) (test Nonreactive Nonreactive dmmg=629) HEPATITIS B CORE IGM ANTIBODY (BEAKER) (test Nonreactive Nonreactive noiq=377) HEPATITIS C ANTIBODY (BEAKER) (test jhtg=619) Nonreactive Nonreactive HEPATITIS B SURFACE ANTIGEN (2) (BEAKER) (test Nonreactive Nonreactive wyoh=2585) [id number] 05:06:00 Test Item Value Reference Range Comments MAGNESIUM (BEAKER) (test hpzj=067) 2.6 mg/dL 1.6-2.6 BASIC METABOLIC [id number] 05:06:00 Test Item Value Reference Range Comments SODIUM (BEAKER) (test 138 meq/L 136-145 qbgl=054) POTASSIUM (BEAKER) (test 4.9 meq/L 3.5-5.1 ihgn=873) CHLORIDE (BEAKER) (test 106 meq/L 98-107 otrt=390) CO2 (BEAKER) (test 27 meq/L 22-29 zuba=392) BLOOD UREA NITROGEN 16 mg/dL 7-21 (BEAKER) (test olvk=100) CREATININE (BEAKER) (test 0.95 mg/dL 0.57-1.25 zonb=423) GLUCOSE RANDOM (BEAKER) 93 mg/dL 70-105 (test ohvk=486) CALCIUM (BEAKER) (test 10.2 mg/dL 8.4-10.2 ojbm=530) EGFR (BEAKER) (test 56 mL/min/1.73 sq m ESTIMATED GFR IS NOT uell=8503) ACCURATE CREATININE CLEARANCE IN PREDICTING GLOMERULAR FILTRATION RATE. ESTIMATED GFR IS NOT APPLICABLE FOR DIALYSIS PATIENTS. HEPATIC FUNCTION [id number] 05:06:00 Test Item Value Reference Range Comments TOTAL PROTEIN (BEAKER) (test yjpm=443) 6.5 gm/dL 6.0-8.3 ALBUMIN (BEAKER) (test aoiv=3516) 3.5 g/dL 3.5-5.0 BILIRUBIN TOTAL (BEAKER) (test sjpa=472) 0.8 mg/dL 0.2-1.2 BILIRUBIN DIRECT (BEAKER) (test wkog=400) 0.5 mg/dL 0.1-0.5 ALKALINE PHOSPHATASE (BEAKER) (test mlil=147) 305 U/L 40-150 AST (SGOT) (BEAKER) (test gski=320) 674 U/L 5-34 ALT (SGPT) (BEAKER) (test sjto=082) 686 U/L 6-55 PROTHROMBIN [id number] 04:53:00 Test Item Value Reference Range Comments PROTIME (BEAKER) (test yraw=812) 14.4 seconds 11.7-14.7 INR (BEAKER) (test oeye=343) 1.1 <=5.9 RECOMMENDED COUMADIN/WARFARIN INR THERAPY RANGESSTANDARD DOSE: 2.0 - 3.0 Includes: PROPHYLAXIS forvenous thrombosis, systemic embolization; TREATMENT for venous thrombosis and/or pulmonary embolus.HIGH RISK: Target INR is 2.5-3.5 for patients with mechanical heart valves.CBC W/PLT COUNT & AUTO [id number] 04:44:00 Test Item Value Reference Range Comments WHITE BLOOD CELL COUNT (BEAKER) (test fqcv=203) 6.1 K/ L 3.5-10.5 RED BLOOD CELL COUNT (BEAKER) (test ivci=569) 3.20 M/ L 3.93-5.22 HEMOGLOBIN (BEAKER) (test gyzg=677) 9.1 GM/DL 11.2-15.7 HEMATOCRIT (BEAKER) (test fpia=284) 30.1 % 34.1-44.9 MEAN CORPUSCULAR VOLUME (BEAKER) (test caxz=113) 94.1 fL 79.4-94.8 MEAN CORPUSCULAR HEMOGLOBIN (BEAKER) (test 28.4 pg 25.6-32.2 bnsz=393) MEAN CORPUSCULAR HEMOGLOBIN CONC (BEAKER) (test 30.2 GM/DL 32.2-35.5 yctz=607) RED CELL DISTRIBUTION WIDTH (BEAKER) (test 13.2 % 11.7-14.4 wqha=913) PLATELET COUNT (BEAKER) (test clus=284) 204 K/CU MM 150-450 MEAN PLATELET VOLUME (BEAKER) (test aivy=092) 9.2 fL 9.4-12.3 NUCLEATED RED BLOOD CELLS (BEAKER) (test 0 /100 WBC 0-0 rafu=303) NEUTROPHILS RELATIVE PERCENT (BEAKER) (test 55 % pnqy=737) LYMPHOCYTES RELATIVE PERCENT (BEAKER) (test 33 % syjt=984) MONOCYTES RELATIVE PERCENT (BEAKER) (test 8 % mhuz=994) EOSINOPHILS RELATIVE PERCENT (BEAKER) (test 3 % mrey=071) BASOPHILS RELATIVE PERCENT (BEAKER) (test 1 % yiab=854) NEUTROPHILS ABSOLUTE COUNT (BEAKER) (test 3.38 K/ L 1.56-6.13 ctkd=661) LYMPHOCYTES ABSOLUTE COUNT (BEAKER) (test 1.99 K/ L 1.18-3.74 rkga=259) MONOCYTES ABSOLUTE COUNT (BEAKER) (test 0.50 K/ L 0.24-0.36 base=603) EOSINOPHILS ABSOLUTE COUNT (BEAKER) (test 0.16 K/ L 0.04-0.36 lwxj=783) BASOPHILS ABSOLUTE COUNT (BEAKER) (test 0.03 K/ L 0.01-0.08 nuht=475) IMMATURE GRANULOCYTES-RELATIVE PERCENT (BEAKER) 1 % 0-1 (test uugo=2325)
--- OUTSIDE RECORDS SUMMARY | 2018-02-21 18:02 | XMS REPORT | Clinical Summary ---
:1935 Author Organization [facility] Address [address] [facility] [place] [address] Care Team Providers Name Role Phone Deejay [...] Anesthesia Event Gastroenterology Yoshi Mccrary MD 11/21/2017 [facility] General Internal [facility] Calculus of gallbladder with biliary obstruction but without cholecystitis (Primary Dx); - Encounter Medicine Madhu Simple chronic bronchitis (HCC); 11/25/2017 MD Katharina Elevated liver function tests; Chester Hernandez Epigastric pain; MD Michael Essential hypertension; Elevated transaminase level; Chronic diastolic heart failure (HCC); Choledocholithiasis; Other emphysema (HCC); 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 WBC 11.5 (H) 3.5 - 10.5 K/L [facility] RBC 3.23 (L) 3.93 - 5.22 M/L [facility] Hemoglobin 9.4 (L) 11.2 - 15.7 GM/DL [facility] Hematocrit 31.5 (L) 34.1 - 44.9 % [facility] MCV 97.5 (H) 79.4 - 94.8 fL [facility] MCH 29.1 25.6 - 32.2 pg [facility] MCHC 29.8 (L) 32.2 - 35.5 GM/DL [facility] RDW 13.3 11.7 - 14.4 % [facility] Platelets 208 150 - 450 K/CU MM [facility] MPV 9.4 9.4 - 12.3 fL [facility] nRBC 0 0 - 0 /100 WBC [facility] % Neutros 88 % [facility] % Lymphs 8 % [facility] % Monos 3 % [facility] % Eos 0 % [facility] % Baso 0 % [facility] # Neutros 10.06 (H) 1.56 - 6.13 K/L [facility] # Lymphs 0.92 (L) 1.18 - 3.74 K/L [facility] # Monos 0.32 0.24 - 0.36 K/L [facility] # Eos 0.00 (L) 0.04 - 0.36 K/L [facility] # Baso 0.02 0.01 - 0.08 K/L [facility] Immature 1 0 - 1 % [facility] Granulocytes-[facility] Specimen Blood - Arm, Right Performing Organization Address City/State/Zipcode Phone Number [facility] [address] [place] [address] CENTER Phosphorus (11/25/2017 5:14 AM CDT) Phosphorus 4.1 2.3 - 4.7 mg/dL [facility] Specimen Blood - Arm, Right Performing Organization Address [facility] Phone Number [address] [address] [place] Magnesium (11/25/2017 5:14 AM CDT)Only the most recent of4 resultswithin the time period is included. Magnesium 2.1 1.6 - 2.6 mg/dL [facility] Specimen Blood - Arm, Right Performing Organization Address [facility] Phone Number [address] [address] [place] Hepatic function panel (11/25/2017 5:14 AM CDT)Only the most recent of4 resultswithin the time period is included. Protein, Total 6.3 6.0 - 8.3 gm/dL [facility] Albumin 3.4 (L) 3.5 - 5.0 g/dL [facility] Total Bilirubin 0.4 0.2 - 1.2 mg/dL [facility] Bilirubin, Direct 0.2 0.1 - 0.5 mg/dL [facility] Alkaline Phosphatase 230 (H) 40 - 150 U/L [facility] AST 84 (H) 5 - 34 U/L [facility] ALT 216 (H) 6 - 55 U/L [facility] Specimen Blood - Arm, Right Performing Organization Address [facility] Phone Number [address] [address] [phone] [place] Basic Metabolic Panel (11/25/2017 5:14 AM CDT)Only the most recent of4 resultswithin the time period is included. Sodium 139 136 - 145 meq/L [facility] Potassium 5.6 (H) 3.5 - 5.1 meq/L [facility] Chloride 107 98 - 107 meq/L [facility] CO2 27 22 - 29 meq/L [facility] BUN 17 7 - 21 mg/dL [facility] Creatinine 1.10 0.57 - 1.25 mg/dL [facility] Glucose 125 (H) 70 - 105 mg/dL [facility] Calcium 10.1 8.4 - 10.2 mg/dL [facility] EGFR 47Comment: ESTIMATED GFR IS mL/min/1.73 sq m [facility] NOT ACCURATE CREATININE [facility] CENTER CLEARANCE IN PREDICTING GLOMERULAR FILTRATION RATE. ESTIMATED GFR IS NOT APPLICABLE FOR DIALYSIS PATIENTS. Specimen Blood - Arm, Right Performing Organization Address City/State/Zipcode Phone Number [facility] [address] [place] [address] [phone] CENTER Tissue Exam (11/24/2017 5:55 PM CDT) Case Report Surgical Pathology Report Case: [id number] [facility] Authorizing Provider:Yumi Shah MD Collected: 11/24/2017 1755 [facility] Ordering Location: [facility] PERIOPERATIVE Received: 11/25/2017 0841 SERVICES Pathologist: Robyn Patino MD Specimen:Gallbladder DIAGNOSIS GALLBLADDER, CHOLECYSTECTOMY: [facility] - CHRONIC CHOLECYSTITIS WITH CHOLELITHIASIS [facility] MO/pl Signing Pathologist Direct Phone Line: [phone] CPT Code(s) [address]97[address] [facility] CLINICAL HISTORY Calculus of gallbladder [facility] without cholecystitis [facility] without obstruction SPECIMEN SOURCE Gallbladder [facility] GROSS DESCRIPTION Received fresh labeled "gallbladder" is a 9.0 x 3.5 x 1.0 cm intact, distended gallbladder. The serosal surface is purple-ramos and exhibits cautery artifact on the hepatic surface. The lumen contains yel [facility] low-green to red mucoid bile and a 1.1 cm in greatest dimension yellow-gold to black irregular calculus. The mucosal surface is yellow-green to red, velvety , trabeculated and glistening. The wall measures up to 0.3 cm in maximum thickness. [facility] Section code: A1, parallel cystic duct resection margin; A2, insurance account representative section of gallbladder. DB/pl MICROSCOPIC DESCRIPTION The gallbladder shows [facility] chronic cholecystitis. Some [facility] of the mucosa is autolyzed, but there are still discernible Rokitansky-Aschoff sinuses. Some of the mucosa shows duplicated bland glandular elements, also autolyzed, possibly representing focal adenomyosis. Some bile stained elements are present within Rokitansky-Aschoff sinuses as well. There are also some cystic changes. Atypia is not noted. Specimen Tissue - Gallbladder Performing Organization Address [facility] Phone Number [address] [address] [phone] CENTER ECHOCARDIOGRAM REPORT - SCAN (11/24/2017 11:50 AM CDT) Narrative Performed At Type and screen, automated (11/24/2017 6:19 AM CDT) ABO/RH AUTOMATED (BEAKER) A POSITIVE [facility] Ab Scrn NEGATIVE [facility] Specimen Blood Performing Organization Address [facility] Phone Number [address] [address] Prothrombin time/INR (11/24/2017 6:19 AM CDT)Only the most recent of3 resultswithin the time period is included. Protime 14.2 11.7 - 14.7 seconds [facility] INR 1.1 <=5.9 [facility] Specimen Blood Narrative Performed At [facility] RECOMMENDED COUMADIN/WARFARIN INR THERAPY RANGES STANDARD DOSE: 2.0 - 3.0 Includes: PROPHYLAXIS for venous thrombosis, systemic embolization; TREATMENT for venous thrombosis and/or pulmonary embolus. HIGH RISK: Target INR is 2.5-3.5 for patients with mechanical heart valves. 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[employer] Ita Sanchezerpreting Mary Lou Turpin MD Physician [...] Study 11/23/2017 [place] Gender Female Visit Number [id number] Race Unknown Room Number [id number] Number Date of 1935 Referring Kerri Posadas Physician MD Marj 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[employer] Ita Lundy Interpreting Mary Lou Turpin MD [...] City/State/Zipcode Phone Number [facility] REPORT OF PROCEDURE - ENDOSCOPY URL [...] MD Report Verified Date/Time:11/23/2017 18:31:29 Reading Location: [address] Consult Reading Room Procedure Note Interface, [...] Report Verified Date/Time: 11/23/2017 18:31:29 Reading Location: [address] Consult Reading Room Performing Organization Address City/[facility]/Zipcode Phone Number GE RIS aPTT (11/23/2017 4:56 AM CDT) PTT 28.1 22.5 - 36.0 seconds [facility] Specimen Blood Performing Organization Address City/[facility]/Zipcode Phone Number [facility] [address] [place] [address] CENTER XR chest 2 views (11/22/2017 9:25 AM CDT) Narrative Performed At FINAL REPORT GE RIS CLINICAL HISTORY: rhonchi on exam TECHNIQUE: 2 views of the chest COMPARISON: None IMPRESSION: There are mildly prominent interstitial markings, but without lobar consolidation or pleural effusions. There is mild cardiomegaly. The bones are osteopenic. Signed: Pari Corral MD Report Verified Date/Time:11/22/2017 09:59:21 Reading Location: [facility] Radiology Reading Room Procedure Note Interface, External Ris In - 11/22/2017 10:01 AM CDT FINAL REPORT CLINICAL HISTORY: rhonchi on exam TECHNIQUE: 2 views of the chest COMPARISON: None IMPRESSION: There are mildly prominent interstitial markings, but without lobar consolidation or pleural effusions. There is mild cardiomegaly. The bones are osteopenic. Signed: Pari Corral MD Report Verified Date/Time: 11/22/2017 09:59:21 Reading Location: [facility] Radiology Reading Room Performing Organization Address City/State/Zipcode Phone Number [employer] MR abdomen without IV contrast MRCP (11/22/2017 8:35 AM CDT) Narrative Performed At FINAL REPORT [employer] MRCP, MRI of abdomen without contrast Clinical [...] MD Report Verified Date/Time:11/22/2017 10:20:53 Reading Location: [address] Ortho Consult Reading Room Procedure Note [...] Report Verified Date/Time: 11/22/2017 10:20:53 Reading Location: [address] Ortho Consult Reading Room Performing Organization Address [facility] Phone Number RIS Hepatitis panel, acute (11/22/2017 4:31 AM CDT) Hep A IgM HEPATITIS A TEST NEGATIVE Nonreactive [facility] Hep B C IgM NON-REACTIVE Nonreactive [facility] Hepatitis C Ab NON-REACTIVE Nonreactive [facility] hepatitis B Surface Ag NON-REACTIVE Nonreactive [facility] Specimen Blood - Arm, Left Performing Organization Address City/[facility]/Zipcode Phone Number [address] [address] [phone] CENTER Blood culture #1 (11/22/2017 4:30 AM CDT) Result No growth in 5 days [facility] Specimen Blood - Arm, Left Performing Organization Address [facility]/Zipcode Phone Number [phone] [place] [address] [phone] CENTER after 02/20/2017 Insurance Payer Benefit Plan / Subscriber ID Type Phone Address Group MEDICARE MEDICARE A B xxxxxxxxxxx Medicare BLUE CROSS/BLUE [place] INDEMNITY [place] xxxxxxxxxxxx PPO [phone] [address] [place] [address] ([place]) [place] [address] Advance Directives For more information, please contact:[address] [phone] Code Status Date Activated Date Inactivated Comments Full Code 11/21/2017 11:45 PM 11/25/2017 2:38 PM This code status was determined by: Patient
[2018-02-21 18:40] LABS: Arterial Blood Carboxyhemoglob 1.5 % (0-1.5); Blood Gas Oxyhemoglobin 91.7 % (94-97)
[2018-02-21 18:46] LABS: Absolute Lymphocytes (CBC) 1.9 K/uL (0.7-4.9); Absolute Monocytes 0.6 K/uL (0.1-1.3); Absolute Neutrophil 6.9 K/uL (1.8-8.0); Basophils % 0.4 % (0-1.3); Eosinophils % 1.6 % (0-4.4); Hematocrit 33.4 % (36.0-45.0); Lymphocytes % 20.1 % (15.3-44.8); MPV 7.4 fL (7.6-11.3)
[2018-02-21 18:47] LABS: Protime INR 0.94
--- NOTE | 2018-02-21 19:02 | EDPHYS ---
Physician Documentation [facility] Name: Zohreh López Age: 82 yrs Sex: Female : 1935 Arrival Date: 02/21/2018 Time: 18:00 Bed 6 Private MD: Alfonso Fitzpatrick R ED Physician Samuel Lizarraga HPI: 02/21 18:57 This 82 yrs old Female presents to ER via Ambulatory with complaints of zee Breathing Difficulty. 18:57 The patient has shortness of breath at rest. Onset: The symptoms/episode began/occurred zee 2 day(s) ago. The patient's shortness of breath is aggravated by walking, is alleviated by nothing. Severity of symptoms: At their worst the symptoms were mild moderate in the emergency department the symptoms are unchanged. The patient has not experienced similar symptoms in the past. Historical: - Allergies: 18:04 No Known Allergies; hj - PMHx: 18:04 COPD; Hypertension; hj - Immunization history:: Adult Immunizations up to date. - Social history:: Smoking status: Patient/guardian denies using tobacco, Patient/guardian denies using alcohol. - Ebola Screening: : Patient negative for fever greater than or equal to 101.5 degrees Fahrenheit, and additional compatible Ebola Virus Disease symptoms Patient denies exposure to infectious person Patient denies travel to an Ebola-affected area in the 21 days before illness onset. - Family history:: not pertinent. ROS: 18:57 Constitutional: Negative for fever, chills, and weight loss, Eyes: Negative for injury, zee pain, redness, and discharge, ENT: Negative for injury, pain, and discharge, Neck: Negative for injury, pain, and swelling, Cardiovascular: Negative for chest pain, palpitations, and edema, Abdomen/GI: Negative for abdominal pain, nausea, vomiting, diarrhea, and constipation, Back: Negative for injury and pain, : Negative for injury, bleeding, discharge, and swelling, MS/Extremity: Negative for injury and deformity, Skin: Negative for injury, rash, and discoloration, Neuro: Negative for headache, weakness, numbness, tingling, and seizure, Psych: Negative for depression, anxiety, suicide ideation, homicidal ideation, and hallucinations, Allergy/Immunology: Negative for hives, rash, and allergies, Endocrine: Negative for neck swelling, polydipsia, polyuria, polyphagia, and marked weight changes, Hematologic/Lymphatic: Negative for swollen nodes, abnormal bleeding, and unusual bruising. 18:57 Respiratory: Positive for cough, shortness of breath, at rest. Exam: 18:57 Constitutional: This is a well developed, well nourished patient who is awake, alert, zee and in no acute distress. Head/Face: Normocephalic, atraumatic. Eyes: Pupils equal round and reactive to light, extra-ocular motions intact. Lids and lashes normal. Conjunctiva and sclera are non-icteric and not injected. Cornea within normal limits. Periorbital areas with no swelling, redness, or edema. ENT: Nares patent. No nasal discharge, no septal abnormalities noted. Tympanic membranes are normal and external auditory canals are clear. Oropharynx with no redness, swelling, or masses, exudates, or evidence of obstruction, uvula midline. Mucous membranes moist. Neck: Trachea midline, no thyromegaly or masses palpated, and no cervical lymphadenopathy. Supple, full range of motion without nuchal rigidity, or vertebral point tenderness. No Meningismus. Chest/axilla: Normal chest wall appearance and motion. Nontender with no deformity. No lesions are appreciated. Cardiovascular: Regular rate and rhythm with a normal S1 and S2. No gallops, murmurs, or rubs. Normal PMI, no JVD. No pulse deficits. Abdomen/GI: Soft, non-tender, with normal bowel sounds. No distension or tympany. No guarding or rebound. No evidence of tenderness throughout. Back: No spinal tenderness. No costovertebral tenderness. Full range of motion. Female : Normal external genitalia. Skin: Warm, dry with normal turgor. Normal color with no rashes, no lesions, and no evidence of cellulitis. MS/ Extremity: Pulses equal, no cyanosis. Neurovascular intact. Full, normal range of motion. Neuro: Awake and alert, GCS 15, oriented to person, place, time, and situation. Cranial nerves II-XII grossly intact. Motor strength 5/5 in all extremities. Sensory grossly intact. Cerebellar exam normal. Normal gait. Psych: Awake, alert, with orientation to person, place and time. Behavior, mood, and affect are within normal limits. 18:57 Respiratory: mild respiratory distress is noted, Respirations: labored breathing, that is mild, Breath sounds: decreased breath sounds, rhonchi, wheezing: expiratory Respiratory rate: 26 18:57 Musculoskeletal/extremity: DVT Exam: No signs of deep vein thrombosis. no pain, no swelling, no tenderness, negative Homans' sign noted on exam, no appreciated bluish discoloration, no erythema, no increased warmth. Vital Signs: 18:05 BP 133 / 55; Pulse 60; Resp 26; Temp 97.3(TE); Pulse Ox 90% on 2 lpm NC; Weight 86.18 hj kg; Height 5 ft. 3 in. (160.02 cm); Pain 0/10; 19:50 BP 131 / 51; Pulse 67; Resp 19 S; Pulse Ox 100% on R/A; jd3 20:33 BP 123 / 53; Pulse 63; Resp 20 S; Pulse Ox 94% on 2 lpm NC; jd3 18:05 Body Mass Index 33.66 (86.18 kg, 160.02 cm) MDM: 18:08 Patient medically screened. [facility] 18:59 Data reviewed: vital signs, nurses notes, lab test result(s), EKG, radiologic studies, zee plain films. 02/21 18:22 Order name: Basic Metabolic Panel; Complete Time: 19:11 ca1 02/21 18:22 Order name: CBC with Diff; Complete Time: 18:56 ca1 02/21 18:22 Order name: LFT's; Complete Time: 19:11 ca1 02/21 18:22 Order name: Magnesium; Complete Time: 19:11 ca1 02/21 18:22 Order name: NT PRO-BNP; Complete Time: 19:11 ca1 02/21 18:22 Order name: PT-INR; Complete Time: 18:56 ca1 02/21 18:22 Order name: Troponin (emerg Dept Use Only); Complete Time: 19:11 ca1 02/21 18:22 Order name: XRAY Chest (1 view) ca1 02/21 18:23 Order name: Blood Culture Adult (2) ca1 02/21 18:27 Order name: ABG; Complete Time: 18:56 iw 02/21 18:22 Order name: EKG; Complete Time: 18:23 ca1 02/21 18:22 Order name: Cardiac monitoring; Complete Time: 18:22 ca1 02/21 18:22 Order name: EKG - Nurse/Tech; Complete Time: 18:22 ca1 02/21 18:22 Order name: IV Saline Lock; Complete Time: 18:40 ca1 02/21 18:22 Order name: Labs collected and sent; Complete Time: 18:40 ca1 02/21 18:22 Order name: O2 Per Protocol; Complete Time: 18:22 ca1 02/21 18:22 Order name: O2 Sat Monitoring; Complete Time: 18: ca1 02/21 19:17 Order name: CONS Physician Consult EDMS Administered Medications: 19:41 Drug: SOLU-Medrol 125 mg Route: IVP; Site: right antecubital; jd3 20:29 Follow up: Response: No adverse reaction jd3 19:41 Drug: Albuterol - atroVENT (3:1) (2.5 mg - 0.5 mg) 3 ml Route: Nebulizer; jd3 20:29 Follow up: Response: No adverse reaction jd3 19:41 Drug: Pepcid 20 mg Route: IVP; Site: right antecubital; jd3 20:29 Follow up: Response: No adverse reaction jd3 19:42 Drug: Rocephin - (cefTRIAXone) 1 grams Route: IVPB; Infused Over: 30 mins; Site: right jd3 antecubital; 20:29 Follow up: Response: No adverse reaction; IV Status: Completed infusion jd3 19:43 Drug: Zithromax 500 mg Route: IVPB; Infused Over: 1 hrs; Site: right antecubital; jd3 20:47 Follow up: Response: No adverse reaction; IV Status: Completed infusion jd3 20:21 Drug: Zofran 4 mg Route: IVP; Site: right antecubital; jd3 20:46 Follow up: Response: No adverse reaction jd3 Disposition: 02/21/18 19:01 Hospitalization ordered by Alfonso Fitzpatrick for Inpatient Admission. Preliminary diagnosis are Dyspnea, Chronic obstructive pulmonary disease with (acute) exacerbation, Hypoxemia, Anemia, unspecified, Unspecified kidney failure - insufficency. - Bed requested for Telemetry/MedSurg (Inpatient). - Status is Inpatient Admission. jd3 - Condition is Fair. - Problem is new. - Symptoms have improved. UTI on Admission? No Signatures: Dispatcher [employer] EDMS Samuel Lizarraga MD MD cha Joaquin, Henry, RN RN hj Garcia, Cindy, RN RN cg Christian Farrell RN RN jd3 Coco Cordoba RN RN ca1 Corrections: (The following items were deleted from the chart) 19:25 19:01 Hospitalization Ordered by Alfonso Fitzpatrick MD for Inpatient Admission. Preliminary zee diagnosis is Dyspnea; Chronic obstructive pulmonary disease with (acute) exacerbation; Hypoxemia. Bed requested for Telemetry/MedSurg (Inpatient). Status is Inpatient Admission. Condition is Fair. Problem is new. Symptoms have improved. UTI on Admission? No. zee 20:00 19:25 02/21/2018 19:01 Hospitalization Ordered by Alfonso Fitzpatrick MD for Inpatient cg Admission. Preliminary diagnosis is Dyspnea; Chronic obstructive pulmonary disease with (acute) exacerbation; Hypoxemia; Anemia, unspecified; Unspecified kidney failure - insufficency. Bed requested for Telemetry/MedSurg (Inpatient). Status is Inpatient Admission. Condition is Fair. Problem is new. Symptoms have improved. UTI on Admission? No. zee 20:05 20:00 02/21/2018 19:01 Hospitalization Ordered by Alfonso Fitzpatrick MD for Inpatient cg Admission. Preliminary diagnosis is Dyspnea; Chronic obstructive pulmonary disease with (acute) exacerbation; Hypoxemia; Anemia, unspecified; Unspecified kidney failure - insufficency. Bed requested for Telemetry/MedSurg (Inpatient). Status is Inpatient Admission. Condition is Fair. Problem is new. Symptoms have improved. UTI on Admission? No. cg 20:49 20:05 02/21/2018 19:01 Hospitalization Ordered by Alfonso Fitzpatrick MD for Inpatient jd3 Admission. Preliminary diagnosis is Dyspnea; Chronic obstructive pulmonary disease with (acute) exacerbation; Hypoxemia; Anemia, unspecified; Unspecified kidney failure - insufficency. Bed requested for Telemetry/MedSurg (Inpatient). Status is Inpatient Admission. Condition is Fair. Problem is new. Symptoms have improved. UTI on Admission? No. cg
--- NOTE | 2018-02-21 19:02 | ER ---
Nurse's Notes [facility] Name: Zohreh López Age: 82 yrs Sex: Female : 1935 Arrival Date: 02/21/2018 Time: 18:00 Bed 6 Private MD: Alfonso Fitzpatrick R Diagnosis: Dyspnea;Chronic obstructive pulmonary disease with (acute) exacerbation;Hypoxemia;Anemia, unspecified;Unspecified kidney failure-insufficency Presentation: 02/21 18:02 Presenting complaint: Patient states: uses O2 at 2 L at home, for the past 2 days nadeen hj been jittery and my O2 sat is getting low; reports cough and fever;. Transition of care: patient was not received from another setting of care. Onset of symptoms was February 21, 2018. Risk Assessment: Do you want to hurt yourself or someone else? Patient reports no desire to harm self or others. Initial Sepsis Screen: Does the patient meet any 2 criteria? No. Patient's initial sepsis screen is negative. Does the patient have a suspected source of infection? No. Patient's initial sepsis screen is negative. Care prior to arrival: None. 18:02 Method Of Arrival: Ambulatory 18:02 Acuity: KALEB 3 hj Triage Assessment: 18:05 General: Appears in no apparent distress. uncomfortable, Behavior is calm, cooperative, hj appropriate for age. Pain: Denies pain. Respiratory: Reports labored breathing Onset: The symptoms/episode began/occurred the patient has mild shortness of breath. Historical: - Allergies: 18:04 No Known Allergies; hj - PMHx: 18:04 COPD; Hypertension; hj - Immunization history:: Adult Immunizations up to date. - Social history:: Smoking status: Patient/guardian denies using tobacco, Patient/guardian denies using alcohol. - Ebola Screening: : Patient negative for fever greater than or equal to 101.5 degrees Fahrenheit, and additional compatible Ebola Virus Disease symptoms Patient denies exposure to infectious person Patient denies travel to an Ebola-affected area in the 21 days before illness onset. - Family history:: not pertinent. Screenin:04 Abuse screen: Denies threats or abuse. Denies injuries from another. Nutritional hj screening: No deficits noted. Tuberculosis screening: No symptoms or risk factors identified. Fall Risk None identified. Assessment: 18:04 Cardiovascular: Rhythm is. Respiratory: Airway is patent Respiratory effort is even, hj labored, Respiratory pattern is regular, 18:42 Reassessment:. General: Appears in no apparent distress. uncomfortable, ill, Behavior ca1 is calm, cooperative, appropriate for age. Pain: Denies pain. Neuro: Level of Consciousness is awake, alert, obeys commands, Oriented to person, place, time, situation. Cardiovascular: Heart tones S1 S2 present Capillary refill < 3 seconds Rhythm is sinus bradycardia. Respiratory: Reports shortness of breath at rest cough that is productive, Airway is patent Trachea midline Respiratory effort is even, labored, Respiratory pattern is regular, Breath sounds are diminished bilaterally. GI: Abdomen is round non-distended, Bowel sounds present X 4 quads. Abd is soft and non tender X 4 quads. : : No signs and/or symptoms were reported regarding the genitourinary system. EENT: No signs and/or symptoms were reported regarding the EENT system. Derm: Skin is intact, Skin is pink, warm \T\ dry. Musculoskeletal: Circulation, motion, and sensation intact. Capillary refill < 3 seconds, Swelling present in right foot and left foot. 19:30 Reassessment: Patient appears in no apparent distress at this time. No changes from jd3 previously documented assessment. Patient and/or family updated on plan of care and expected duration. Pain level reassessed. Patient is alert, oriented x 3, equal unlabored respirations, skin warm/dry/pink. 20:34 Reassessment: Patient appears in no apparent distress at this time. Patient and/or jd3 family updated on plan of care and expected duration. Pain level reassessed. Patient is alert, oriented x 3, equal unlabored respirations, skin warm/dry/pink. report given to Nisreen BERRY. Vital Signs: 18:05 BP 133 / 55; Pulse 60; Resp 26; Temp 97.3(TE); Pulse Ox 90% on 2 lpm NC; Weight 86.18 hj kg; Height 5 ft. 3 in. (160.02 cm); Pain 0/10; 19:50 BP 131 / 51; Pulse 67; Resp 19 S; Pulse Ox 100% on R/A; jd3 20:33 BP 123 / 53; Pulse 63; Resp 20 S; Pulse Ox 94% on 2 lpm NC; jd3 18:05 Body Mass Index 33.66 (86.18 kg, 160.02 cm) hj ED Course: 16:35 Inserted saline lock: 20 gauge in right antecubital area, using aseptic technique. ca1 Blood collected. 16:35 Initial lab(s) drawn, by me, sent to lab. First set of blood cultures drawn by me. ca1 18:00 Patient arrived in ED. am2 18:01 Alfonso Fitzpatrick MD is Private Physician. am2 18:04 Triage completed. hj 18:05 Arm band placed on right wrist. hj 18:05 Patient has correct armband on for positive identification. Placed in gown. Bed in low hj position. Call light in reach. Side rails up X 1. Adult w/ patient. 18:08 Samuel Lizarraga MD is Attending Physician. zee 18:10 surg rn on. Pulse ox on. NIBP on. ca1 18:10 Warm blanket given. ca1 18:21 Coco Cordoba RN is Primary Nurse. ca1 18:57 XRAY Chest (1 view) In Process Unspecified. EDMS 19:00 Alfonso Fitzpatrick MD is Hospitalizing Provider. [facility] 20:34 No provider procedures requiring assistance completed. Patient admitted, IV remains in jd3 place. Administered Medications: 19:41 Drug: SOLU-Medrol 125 mg Route: IVP; Site: right antecubital; jd3 20:29 Follow up: Response: No adverse reaction jd3 19:41 Drug: Albuterol - atroVENT (3:1) (2.5 mg - 0.5 mg) 3 ml Route: Nebulizer; jd3 20:29 Follow up: Response: No adverse reaction jd3 19:41 Drug: Pepcid 20 mg Route: IVP; Site: right antecubital; jd3 20:29 Follow up: Response: No adverse reaction jd3 19:42 Drug: Rocephin - (cefTRIAXone) 1 grams Route: IVPB; Infused Over: 30 mins; Site: right jd3 antecubital; 20:29 Follow up: Response: No adverse reaction; IV Status: Completed infusion jd3 19:43 Drug: Zithromax 500 mg Route: IVPB; Infused Over: 1 hrs; Site: right antecubital; jd3 20:47 Follow up: Response: No adverse reaction; IV Status: Completed infusion jd3 20:21 Drug: Zofran 4 mg Route: IVP; Site: right antecubital; jd3 20:46 Follow up: Response: No adverse reaction jd3 Outcome: 19:01 Decision to Hospitalize by Provider. zee 20:36 Admitted to Med/surg accompanied by tech, via stretcher, room 208, with oxygen, with jd3 chart, Report called to Nisreen BERRY 20:36 Condition: stable 20:36 Instructed on the need for admit, Demonstrated understanding of instructions. 20:49 Patient left the ED. jd3 Signatures: Dispatcher [employer] EDSamuel West MD MD cha Joaquin, Henry, RN RN hj Carol Munoz Jonathon, RN RN jCoco Henning RN RN ca1 Corrections: (The following items were deleted from the chart) 18:41 16:35 Initial lab(s) drawn, by me, by EMS personnel. First set of blood cultures drawn ca1 by me, ca1 19:52 19:50 Reassessment: Patient appears in no apparent distress at this time. No changes jd3 from previously documented assessment. Patient and/or family updated on plan of care and expected duration. Pain level reassessed. Patient is alert, oriented x 3, equal unlabored respirations, skin warm/dry/pink. jd3
[2018-02-21 19:04] LABS: ALT/SGPT 30 U/L (12-78); AST/SGOT 20 U/L (15-37); Albumin 3.4 g/dL (3.4-5.0); Alkaline Phosphatase 151 U/L (45-117); BUN Blood Urea Nitrogen 21 mg/dL (7-18); Bicarbonate 35 mmol/L (21-32); Bilirubin Direct 0.1 mg/dL (0-0.2); Bilirubin Total 0.6 mg/dL (0.2-1.0); Glucose Level 113 mg/dL (74-106); NT PRO-BNP 461 pg/mL (<450); Potassium 4.7 mmol/L (3.5-5.1); Protein, Total 7.5 g/dL (6.4-8.2); Sodium Level 139 mmol/L (136-145); Troponin (Emerg Dept Use Only) < 0.02 ng/mL (0.0-0.045)
[2018-02-21] MEDS ORDERED: IPRATROPIUM BROM 0.5MG/2.5ML ONE (19:16)
[2018-02-21] MEDS ORDERED: ALBUTEROL 2.5 MG/3 ML NEB SOL ONE (19:16)
[2018-02-21] MEDS ORDERED: METHYLPREDNISOLONE 125 MG INJ ONE (19:16)
[2018-02-21] MEDS ORDERED: FAMOTIDINE 20 MG/2 ML VIAL IV ONE (19:16)
[2018-02-21] MEDS ORDERED: CEFTRIAXONE/SWI 1gm 1 GM/10 ML SYR ONE (19:16)
[2018-02-21] MEDS ORDERED: AZITHROMYCIN 500 MG/250 ML BAG ONE (19:17)
--- NOTE | 2018-02-21 19:26 | RAD REPORT ---
EXAM DESCRIPTION: Nayla Single View02/21/2018 6:57 pm CLINICAL HISTORY: Shortness of breath COMPARISON: none FINDINGS: The lungs appear clear of acute infiltrate. The heart is mildly enlarged IMPRESSION: No acute abnormalities displayed
[2018-02-21] MEDS ORDERED: ONDANSETRON 4 MG/2 ML VIAL ONE (20:25)
[2018-02-21] MEDS ORDERED: ONDANSETRON 4 MG/2 ML VIAL IV PRN (20:47)
[2018-02-21] MEDS ORDERED: IPRATROPIUM BROM 0.5MG/2.5ML NEB PRN (20:47)
[2018-02-21] MEDS ORDERED: NA CHLORIDE 0.9% 1,000 ML IV SCH (20:47)
[2018-02-21] MEDS ORDERED: ALBUTEROL 2.5 MG/3 ML NEB SOL NEB PRN (20:47)
[2018-02-21] MEDS ORDERED: FAMOTIDINE 20 MG/2 ML VIAL IV SCH (21:00)
[2018-02-21 22:33] VITALS: BMI 33.3
[2018-02-22] MEDS: METHYLPREDNISOLONE 40 MG INJ IV SCH ×3 (01:51→17:20)
[2018-02-22 06:44] LABS: Absolute Lymphocytes (CBC) 0.7 K/uL (0.7-4.9); Absolute Monocytes 0.1 K/uL (0.1-1.3); Basophils % 0.1 % (0-1.3); Hematocrit 32.2 % (36.0-45.0); Lymphocytes % 7.3 % (15.3-44.8); MPV 7.7 fL (7.6-11.3); Monocytes % 0.7 % (3.3-12.3); RBC Red Blood Cell Count 3.68 M/uL (3.86-4.86)
--- NOTE | 2018-02-22 06:48 | EKG ---
Test Date: 2018-02-21 Test Time: 18:16:41 County Treasurer: VILMA MEASUREMENT RESULTS: Intervals: Rate: 56 NC: 150 QRSD: 74 QT: 422 QTc: 407 [place]: P: 61 NC: 150 QRS: 63 T: 72 INTERPRETIVE STATEMENTS: Sinus bradycardia Otherwise normal ECG Compared to ECG 01/06/2018 10:02:38 T-wave abnormality no longer present Electronically Signed On 02-22-18 06:48:01 SOFTWARE TOOLS ENGINEER by Pradeep Che
[2018-02-22 07:07] LABS: Potassium 5.5 mmol/L (3.5-5.1)
--- NOTE | 2018-02-22 08:19 | P.CNS ---
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 [place] as been having more problems over the past month became worse over the past 2 days complaining of more shortness of breath productive cough denies any chest pain is complaining of generalized body swelling he does use nebulizers at home is on home oxygen history of severe COPD is a noninvasive vent at home as per the documentation Allergies No Known Allergies Allergy (Verified 09/07/15 15:57) Home Medications: Amlodipine Besylate 5 mg PO DAILY 01/06/18 Aspirin [Wrigley Aspirin EC] 81 mg PO BEDTIME 01/06/18 Atenolol 50 mg PO DAILY 01/06/18 Atorvastatin Calcium 40 mg PO BEDTIME 01/06/18 Ezetimibe [Zetia] 10 mg PO DAILY 01/06/18 Ipratropium [place] 0.2 mg IH BID 01/06/18 Latanoprost/Pf [Latanoprost 0.005% Eye Drop] 7.5 ml OP BEDTIME 01/06/18 Levothyroxine [Synthroid*] 75 mcg PO [id number] 01/06/18 Magnesium Oxide [Magnesium] 400 mg PO BID 01/06/18 Oxybutynin Chloride [Oxybutynin Chloride ER] 10 mg PO DAILY 01/06/18 Roflumilast [Daliresp] 500 mcg PO DAILY 01/06/18 - Past Medical/Surgical History Diabetic: No -: Pulmonary HTN -: Hypothyroidism -: Hyperlipidemia -: GERD -: Hyperkalemia -: Respiratory failure -: Severe COPD on a noninvasive ventilator at home -: cholecystectomy - Family History Father Medical History: Heart disease Brother Medical History: Cancer - Social History Smoking Status: Former smoker Alcohol use: No CD- Drugs: No Caffeine use: Yes Place of Residence: Home Review of Systems General: Weakness Respiratory: Shortness of Breath Cardiovascular: Edema Physical Examination Temp Pulse Resp BP Pulse Ox 98.2 F 80 20 141/60 H 91 02/22/18 04:00 02/22/18 04:00 02/22/18 04:00 02/22/18 04:00 02/22/18 04:00 General: Alert, Oriented x3, Mild distress HEENT: Atraumatic Neck: Supple Respiratory: Expiratory wheezes Cardiovascular: No edema, Regular rate/rhythm, Normal S1 S2 Gastrointestinal: Normal bowel sounds, Soft and benign Laboratory Data (last 24 hrs) 02/21/18 18:35: PT 11.1, INR 0.94 02/21/18 18:35: WBC 9.5, Hgb 10.9 L, Hct 33.4 L, Plt Count 267 02/21/18 18:35: Sodium 139, Potassium 4.7, BUN 21 H, Creatinine 1.30, Glucose 113 H, Magnesium 3.0 H, Total Bilirubin 0.6, AST 20, ALT 30, Alkaline Phosphatase 151 H - Problems (1) Acute and chronic respiratory failure Current Visit: No Status: Acute Plan: Patient is 82 years of age with a history of terminal COPD admitted with worsening dyspnea she has hypoxic hypercapnic respiratory failure apparently she has a noninvasive ventilator at home continue with bronchodilators chest x- ray shows hyperinflation possible underlying diastolic dysfunction had Lasix try a patient on BiPAP patient to resume her on noninvasive ventilator from home Qualifiers: Respiratory failure complication: hypoxia and hypercapnia
--- NOTE | 2018-02-22 08:38 | RAD REPORT ---
EXAM DESCRIPTION: RAD - Chest Single View - 02/22/2018 6:37 am CLINICAL HISTORY: Chest Pain Chest pain. COMPARISON: Chest Single View dated 02/21/2018; Chest Single View dated 01/06/2018; Chest Pa And Lat (2 Views) dated 10/21/2016; Chest Single View dated 09/10/2015 FINDINGS: Portable technique limits examination quality. Prominent interstitial lung markings again noted, unchanged. Trace bilateral pleural thickening is se en. The heart is moderately enlarged. No displaced fractures. IMPRESSION: Stable chest since 02/21/2018.
[2018-02-22] MEDS: ARFORMOTEROL TARTRATE 15 MCG/2 ML VIAL.NEB NEB SCH ×2 (08:48→20:30)
[2018-02-22] MEDS: IPRATROPIUM BROM 0.5MG/2.5ML NEB SCH ×3 (08:55→20:31)
[2018-02-22] MEDS ORDERED: CEFTRIAXONE/SWI 1gm 1 GM/10 ML SYR IV SCH (09:00)
[2018-02-22] MEDS ORDERED: CEFTRIAXONE 1 GM/NS 50 ML 1 GM/50 ML BAG IV SCH (09:00)
[2018-02-22] MEDS ORDERED: AZITHROMYCIN IV 500 MG in NA CHLORIDE 0.9% 250 ML IVPB SCH (09:00)
[2018-02-22 09:17] LABS: Blood Morphology Comment NOT SEEN (NOT SEEN); Platelet Estimate ADEQ; Urine White Blood Cell Casts OK
[2018-02-22] MEDS: ASPIRIN EC 81 MG TAB PO SCH (09:30)
[2018-02-22] MEDS: OXYBUTYNIN CHLORIDE 5 MG TAB PO SCH (09:31)
[2018-02-22] MEDS: FUROSEMIDE 40 MG TABLET PO SCH (09:31)
[2018-02-22] MEDS: ROFLUMILAST 500 MCG TABLET PO SCH (09:31)
[2018-02-22] MEDS: AMLODIPINE 5 MG TAB PO SCH (09:32)
[2018-02-22] MEDS: ATENOLOL 50 MG TAB PO SCH (09:33)
--- NOTE | 2018-02-22 12:27 | EKG ---
Test Date: 2018-02-22 Test Time: 07:33:09 Deputy Treasurer: YOJANA MEASUREMENT RESULTS: Intervals: Rate: 70 TN: 170 QRSD: 76 QT: 372 QTc: 401 [place]: P: 72 TN: 170 QRS: 81 T: 87 INTERPRETIVE STATEMENTS: Normal sinus rhythm Nonspecific T wave abnormality Abnormal ECG Compared to ECG 02/21/2018 18:16:41 T-wave abnormality now present Sinus bradycardia no longer present Electronically Signed On 02-22-18 12:25:37 COMPUTATOR by Landen Colby
[2018-02-22] MEDS ORDERED: LATANOPROST OP SCH (21:00)
[2018-02-22] MEDS ORDERED: ASPIRIN EC 81 MG TAB PO SCH (21:00)
[2018-02-22] MEDS: ACETAMINOPHEN 500 MG TAB PO PRN (23:35)
[2018-02-23] MEDS: METHYLPREDNISOLONE 40 MG INJ IV SCH (01:07)
[2018-02-23] MEDS: IPRATROPIUM BROM 0.5MG/2.5ML NEB SCH ×4 (01:45→20:00)
--- NOTE | 2018-02-23 03:47 | HP ---
Date of Admission: 02/21/2018 Chief Complaint: COPD exacerbation. History Of Present Illness: An 82-year-old female who is known to have COPD exacerbation in the past and COPD, was brought to the emergency room because of low saturations and wheezing and dyspnea. Th e patient had no evidence of pneumonia. The patient is admitted with a diagnosis of COPD exacerbatio n. Past Medical History: Positive for hypertension and COPD. Allergies: NONE. Family History: Noncontributory. Personal History: Currently nonsmoker. Review of Systems: No chest pain. Physical Examination: General: Revealed 82-year-old female with mild audible wheezing. Vital Signs: Otherwise normal. HEENT: Congested throat, otherwise negative. Neck: Supple. JVD negative. Chest: Bilateral scattered wheezes. Heart: Occasional irregularity noted. Abdomen: Soft. Extremities: No edema. Laboratory Data: White count normal. Chem profile; BUN 21, BNP 461. TSH normal. Assessment: 1.Chronic obstructive pulmonary disease exacerbation. 2.Chronic obstructive pulmonary disease. 3.Hypertension. Plan: The patient currently is receiving breathing treatments. She is restarted on her regular medi cations. Her hypertension medications also restarted. She is on IV steroids. Pulmonary consultatio n has been done. FLORENCE/AUSTYN Voice ID: [id number]
[2018-02-23] MEDS: LEVOTHYROXINE SOD 0.075 MG TAB PO SCH (05:19)
[2018-02-23] MEDS: ARFORMOTEROL TARTRATE 15 MCG/2 ML VIAL.NEB NEB SCH ×2 (07:45→20:00)
--- NOTE | 2018-02-23 08:16 | P.PN ---
Subjective Date of Service: 02/23/18 Chief Complaint: COPD exacerbation Patient is improving doing well she takes trilogy at home and is a noninvasive ventilator doing much better Review of Systems General: Weakness ENT: Nose Discharge Respiratory: Shortness of Breath Physical Examination - Vital Signs Temperature: 97.4 F Blood Pressure: 122/55 Pulse: 98 Respirations: 18 Pulse Ox (%): 94 - Physical Exam General: Alert, In no apparent distress, Oriented x3 HEENT: Atraumatic Neck: Supple Respiratory: Clear to auscultation bilaterally, Diminished Assessment & Plan - Problems (Diagnosis) (1) Acute and chronic respiratory failure Current Visit: No Status: Acute Plan: Patient is doing much better admitted with an exacerbation of her underlying COPD he does have a noninvasive ventilator at home and takes trilogy that was just recently started patient can be discharged home on prednisone 10 mg twice a day resume all her bronchodilators follow with me are her cushion sewer in 2 weeks Qualifiers: Respiratory failure complication: hypoxia and hypercapnia
[2018-02-23] MEDS: predniSONE 10 MG TAB PO SCH ×2 (09:55→22:23)
[2018-02-23] MEDS: ATENOLOL 50 MG TAB PO SCH (09:55)
[2018-02-23] MEDS: OXYBUTYNIN CHLORIDE 5 MG TAB PO SCH (09:55)
[2018-02-23] MEDS: AMLODIPINE 5 MG TAB PO SCH (09:56)
[2018-02-23] MEDS: ROFLUMILAST 500 MCG TABLET PO SCH (09:56)
[2018-02-23] MEDS: FUROSEMIDE 40 MG TABLET PO SCH (09:56)
[2018-02-23] MEDS: ASPIRIN EC 81 MG TAB PO SCH (09:56)
[2018-02-23] MEDS: GUAIFENESIN/DM 5 ML UCUP PO PRN (22:26)
--- NOTE | 2018-02-23 23:03 | PN ---
The patient generally is doing better today; however, she still has hypoxia on ambulation in the room . In view of that, her discharge plan has been on hold. The patient would like to consider custodial placement. dining service worker has been consulted. FLORENCE/AUSTYN Voice ID: [id number] Report ID: [id number]
[2018-02-24] MEDS: IPRATROPIUM BROM 0.5MG/2.5ML NEB SCH ×4 (02:00→20:55)
[2018-02-24] MEDS: LEVOTHYROXINE SOD 0.075 MG TAB PO SCH (06:15)
[2018-02-24] MEDS: ARFORMOTEROL TARTRATE 15 MCG/2 ML VIAL.NEB NEB SCH ×2 (07:49→20:55)
[2018-02-24] MEDS: ASPIRIN EC 81 MG TAB PO SCH (09:01)
[2018-02-24] MEDS: predniSONE 10 MG TAB PO SCH ×2 (09:01→21:18)
[2018-02-24] MEDS: ROFLUMILAST 500 MCG TABLET PO SCH (09:01)
[2018-02-24] MEDS: ATENOLOL 50 MG TAB PO SCH (09:01)
[2018-02-24] MEDS: AMLODIPINE 5 MG TAB PO SCH (09:01)
[2018-02-24] MEDS: FUROSEMIDE 40 MG TABLET PO SCH (09:01)
[2018-02-24] MEDS: GUAIFENESIN/DM 5 ML UCUP PO PRN ×2 (09:37→21:26)
[2018-02-24] MEDS: ACETAMINOPHEN 500 MG TAB PO PRN (09:38)
[2018-02-24] MEDS: OXYBUTYNIN CHLORIDE 5 MG TAB PO SCH (09:38)
--- NOTE | 2018-02-24 14:29 | P.PN ---
Subjective Date of Service: 02/24/18 Chief Complaint: COPD exacerbation Patient is not experiencing significant desaturation even on talking and but worse with exertion on patient is now on continuous noninvasive ventilation denies any fever chills or cough alert responsive cooperative Review of Systems General: Weakness Respiratory: Shortness of Breath Physical Examination - Vital Signs Temperature: 97.6 F Blood Pressure: 165/70 Pulse: 66 Respirations: 19 Pulse Ox (%): 100 - Physical Exam General: Alert, Oriented x3 Respiratory: Expiratory wheezes Cardiovascular: No edema, Regular rate/rhythm Assessment & Plan - Problems (Diagnosis) (1) Acute and chronic respiratory failure Current Visit: No Status: Acute Plan: Patient admitted with acute on chronic respiratory failure she is experiencing persistent desaturations on talking even on a noninvasive ventilator which is from her home there is no evidence of an infection potassium is mildly elevated of reduce the dose of her Lasix possible underlying diastolic dysfunction recommend evaluation and transfer to a long-term acute care facility patient is on maximum bronchodilator therapy prognosis very poor Qualifiers: Respiratory failure complication: hypoxia and hypercapnia
--- NOTE | 2018-02-24 22:16 | PN ---
The patient continues to have wheezing and hypoxia with ambulation. Consult for LTAC has initiated a s she is unable to function. Pending that, the patient will be continued on the same management. FLORENCE/AUSTYN Voice ID: [id number] Report ID: [id number]
[2018-02-25] MEDS: IPRATROPIUM BROM 0.5MG/2.5ML NEB SCH ×4 (01:35→20:00)
[2018-02-25] MEDS: LEVOTHYROXINE SOD 0.075 MG TAB PO SCH (05:50)
[2018-02-25] MEDS: ARFORMOTEROL TARTRATE 15 MCG/2 ML VIAL.NEB NEB SCH ×2 (08:22→20:00)
[2018-02-25] MEDS: OXYBUTYNIN CHLORIDE 5 MG TAB PO SCH (08:34)
[2018-02-25] MEDS: ATENOLOL 50 MG TAB PO SCH (08:34)
[2018-02-25] MEDS: FUROSEMIDE 20 MG TABLET PO SCH (08:34)
[2018-02-25] MEDS: predniSONE 10 MG TAB PO SCH ×2 (08:35→21:36)
[2018-02-25] MEDS: ROFLUMILAST 500 MCG TABLET PO SCH (08:35)
[2018-02-25] MEDS: ASPIRIN EC 81 MG TAB PO SCH (08:35)
[2018-02-25] MEDS: AMLODIPINE 5 MG TAB PO SCH (08:35)
[2018-02-25] MEDS: ONDANSETRON 4 MG (ODT) TAB PO PRN (11:18)
--- NOTE | 2018-02-25 23:56 | PN ---
The patient had opinion from LTAC, however, they were not able to accept the patient. The patient owens s end-stage COPD, and family decided to have hospice care. This has been arranged with the charge nu isidro. FLORENCE/AUSTYN Voice ID: [id number] Report ID: [id number]
[2018-02-26] MEDS: IPRATROPIUM BROM 0.5MG/2.5ML NEB SCH ×4 (01:36→19:29)
[2018-02-26] MEDS: LEVOTHYROXINE SOD 0.075 MG TAB PO SCH (05:09)
[2018-02-26] MEDS: ARFORMOTEROL TARTRATE 15 MCG/2 ML VIAL.NEB NEB SCH ×2 (07:34→19:29)
[2018-02-26] MEDS: OXYBUTYNIN CHLORIDE 5 MG TAB PO SCH (09:49)
[2018-02-26] MEDS: FUROSEMIDE 20 MG TABLET PO SCH (09:49)
[2018-02-26] MEDS: predniSONE 10 MG TAB PO SCH ×2 (09:49→21:04)
[2018-02-26] MEDS: ASPIRIN EC 81 MG TAB PO SCH (09:49)
[2018-02-26] MEDS: ATENOLOL 50 MG TAB PO SCH (09:50)
[2018-02-26] MEDS: ROFLUMILAST 500 MCG TABLET PO SCH (09:50)
[2018-02-26] MEDS: AMLODIPINE 5 MG TAB PO SCH (09:50)
[2018-02-26] MEDS: ONDANSETRON 4 MG (ODT) TAB PO PRN (13:02)
[2018-02-26] MEDS: ACETAMINOPHEN 500 MG TAB PO PRN (21:10)
--- NOTE | 2018-02-26 22:30 | PN ---
The patient has been accepted for hospice care. However, arrangements at home have not been made. P ending that she will be continued on the same medication. As soon as arrangements are made at home, she will be discharged. FLORENCE/AUSTYN Voice ID: [id number] Report ID: [id number]
[2018-02-27] MEDS: IPRATROPIUM BROM 0.5MG/2.5ML NEB SCH ×4 (01:54→19:21)
[2018-02-27] MEDS: LEVOTHYROXINE SOD 0.075 MG TAB PO SCH (05:07)
[2018-02-27] MEDS: ARFORMOTEROL TARTRATE 15 MCG/2 ML VIAL.NEB NEB SCH ×2 (08:05→19:21)
[2018-02-27] MEDS: ATENOLOL 50 MG TAB PO SCH (09:34)
[2018-02-27] MEDS: ONDANSETRON 4 MG (ODT) TAB PO PRN (09:34)
[2018-02-27] MEDS: predniSONE 10 MG TAB PO SCH ×2 (09:35→19:57)
[2018-02-27] MEDS: FUROSEMIDE 20 MG TABLET PO SCH (09:35)
[2018-02-27] MEDS: OXYBUTYNIN CHLORIDE 5 MG TAB PO SCH (09:35)
[2018-02-27] MEDS: AMLODIPINE 5 MG TAB PO SCH (09:35)
[2018-02-27] MEDS: ROFLUMILAST 500 MCG TABLET PO SCH (09:36)
[2018-02-27] MEDS: ASPIRIN EC 81 MG TAB PO SCH (09:40)
[2018-02-28] MEDS: IPRATROPIUM BROM 0.5MG/2.5ML NEB SCH ×4 (01:11→19:50)
[2018-02-28] MEDS: LEVOTHYROXINE SOD 0.075 MG TAB PO SCH (05:34)
[2018-02-28] MEDS: ARFORMOTEROL TARTRATE 15 MCG/2 ML VIAL.NEB NEB SCH ×2 (07:20→19:50)
[2018-02-28] MEDS: OXYBUTYNIN CHLORIDE 5 MG TAB PO SCH (09:46)
[2018-02-28] MEDS: ROFLUMILAST 500 MCG TABLET PO SCH (09:47)
[2018-02-28] MEDS: ATENOLOL 50 MG TAB PO SCH (09:47)
[2018-02-28] MEDS: ASPIRIN EC 81 MG TAB PO SCH (09:47)
[2018-02-28] MEDS: predniSONE 10 MG TAB PO SCH ×2 (09:47→20:57)
[2018-02-28] MEDS: FUROSEMIDE 20 MG TABLET PO SCH (09:48)
[2018-02-28] MEDS: AMLODIPINE 5 MG TAB PO SCH (09:48)
[2018-02-28] MEDS: ACETAMINOPHEN 500 MG TAB PO PRN (22:40)
[2018-03-01] MEDS: IPRATROPIUM BROM 0.5MG/2.5ML NEB SCH ×4 (02:00→20:00)
[2018-03-01] MEDS: LEVOTHYROXINE SOD 0.075 MG TAB PO SCH (05:45)
[2018-03-01] MEDS: ARFORMOTEROL TARTRATE 15 MCG/2 ML VIAL.NEB NEB SCH ×2 (07:40→20:00)
[2018-03-01] MEDS: ASPIRIN EC 81 MG TAB PO SCH (09:00)
[2018-03-01] MEDS: ATENOLOL 50 MG TAB PO SCH (10:05)
[2018-03-01] MEDS: FUROSEMIDE 20 MG TABLET PO SCH (10:05)
[2018-03-01] MEDS: OXYBUTYNIN CHLORIDE 5 MG TAB PO SCH (10:05)
[2018-03-01] MEDS: AMLODIPINE 5 MG TAB PO SCH (10:06)
[2018-03-01] MEDS: ROFLUMILAST 500 MCG TABLET PO SCH (10:06)
[2018-03-01] MEDS: predniSONE 10 MG TAB PO SCH ×2 (10:06→21:03)
[2018-03-01] MEDS: ACETAMINOPHEN 500 MG TAB PO PRN ×2 (10:07→17:22)
[2018-03-02] MEDS: IPRATROPIUM BROM 0.5MG/2.5ML NEB SCH ×3 (02:00→14:35)
--- NOTE | 2018-03-02 02:18 | PN ---
I discussed the case with the charge nurse. I have been told that the patient's family is trying to place her in a correction with hospice care. I asked staff nurse to contact psychiatric social worker to see how far this plan has gone. Pending that, she will be continued on the present management. FLORENCE/AUSTYN Voice ID: [id number] Report ID: [id number]
[2018-03-02] MEDS: ACETAMINOPHEN 500 MG TAB PO PRN ×2 (02:29→09:09)
[2018-03-02] MEDS: LEVOTHYROXINE SOD 0.075 MG TAB PO SCH (05:59)
[2018-03-02] MEDS: ARFORMOTEROL TARTRATE 15 MCG/2 ML VIAL.NEB NEB SCH (08:17)
[2018-03-02] MEDS: FUROSEMIDE 20 MG TABLET PO SCH (09:03)
[2018-03-02] MEDS: ROFLUMILAST 500 MCG TABLET PO SCH (09:03)
[2018-03-02] MEDS: ASPIRIN EC 81 MG TAB PO SCH (09:03)
[2018-03-02] MEDS: ATENOLOL 50 MG TAB PO SCH (09:03)
[2018-03-02] MEDS: OXYBUTYNIN CHLORIDE 5 MG TAB PO SCH (09:04)
[2018-03-02] MEDS: predniSONE 10 MG TAB PO SCH (09:04)
[2018-03-02] MEDS: AMLODIPINE 5 MG TAB PO SCH (09:04)
[2018-03-02 15:45] VITALS: O2SAT 91
[2018-03-02 17:05] VITALS: BP 144/60; TEMP 98.4
== END 2018-03-02 17:34 | disposition hospice, inpatient (51) | DRG 190 ==
LOC: ER 17:59 → ERHOLD 19:14 → 2ND 20:36
PROVIDERS: ADMIT Internal Medicine; ATTEND Internal Medicine
PROC: 5A09557 Assistance with Respiratory Ventilation, Greater than 96 Consecutive Hours, Continuous Positive Airway Pressure (ICD-10-PCS; principal; 2018-02-21)
DX: J44.1 Chronic obstructive pulmonary disease with (acute) exacerbation (principal); J96.21 Acute and chronic respiratory failure with hypoxia; J96.22 Acute and chronic respiratory failure with hypercapnia; I27.20 Pulmonary hypertension, unspecified; E03.9 Hypothyroidism, unspecified; E78.5 Hyperlipidemia, unspecified; K21.9 Gastro-esophageal reflux disease without esophagitis; E87.5 Hyperkalemia; Z87.891 Personal history of nicotine dependence; Z99.81 Dependence on supplemental oxygen
CPT/HCPCS: 36415; 71045; 80048; 80076; 82805; 83735; 83880; 84132; 84443; 84484; 85025; 85610; 87040; 87070; 87205; 93005; 94640; 94660; 94760; 96365; 96375; 97110; 97116; 97163; 97530; 99285; J0456; J0696; J2405; J2920; J2930; J7030; J7512; J7605